=== PATIENT | female | born 1995 | race Caucasian/White ===

== ENCOUNTER 2019-05-31 13:43 | Emergency (ER) | payer OTHER, SELFPAY ==
[2019-05-31 13:44] VITALS: BP 156/100; PULSE 96; RESP 17; TEMP 36.2; O2SAT 97; BMI 39.9
--- NOTE | 2019-05-31 15:03 | EKG12_ITS ---
Test Reason : HEADACHE Blood Pressure : / mmHG Vent. Rate : 078 BPM Atrial Rate : 078 BPM P-R Int : 158 ms QRS Dur : 084 ms QT Int : 380 ms P-R-T Axes : 030 015 032 degrees QTc Int : 433 ms Normal sinus rhythm with sinus arrhythmia Normal ECG Confirmed by SHANITA CORDOVA, [place] ([id number]), newspaper editor CARYN REYES ([id number]) on 06/02/2019 10:47:39 AM Referred By: VERN Confirmed By:HOUSTON DIEHL MD
--- NOTE | 2019-05-31 15:03 | CT_ITS ---
STUDY: CT BRAIN WITHOUT CONTRAST REASON FOR EXAM: Female, 23 years old. Headache. Dizziness. RADIATION DOSAGE (If Supplied By Facility): CTDIvol = ( 44.99 ) mGy, DLP = ( 829.85 ) mGycm TECHNIQUE: Transaxial CT imaging of the brain was performed without administration of intravenous contrast material. Individualized dose optimization techniques were used for this CT. COMPARISON: No relevant priors. FINDINGS: Normal soft tissue structures. Normal calvarium. Normal size ventricles and extra-axial spaces for the patient's age. Normal white matter tracts of the cerebral hemispheres. Normal basal ganglia and thalami. Normal brainstem. Normal cerebellum. There is no intracranial hemorrhage. There are no findings of an acute ischemic infarction. Normal visualized paranasal sinuses. CT/Brain/Head without Contrast IMPRESSION: Normal unenhanced CT scan of the brain. Electronically Signed: Farhan Dyson MD at 16:44 EDT , Service support ,
--- NOTE | 2019-05-31 15:09 | NURSING ---
NO OLD EKGS
[2019-05-31] MEDS: Ketorolac 30 MG/ML Syringe IV (15:25)
[2019-05-31] MEDS: 0.9% Normal Saline 1,000 ML 1000 ML IV (15:25)
[2019-05-31 15:26] LABS: Mucous, Urine 0 SEEN /hpf (<or=2+); Red Blood Cells-Urine 0 SEEN /hpf (0-5)
[2019-05-31 15:33] LABS: Absolute Lymphocyte Count 3.03 X10^3/uL (0.83-4.51); Absolute Neutrophil Count 6.7 X10^3/uL (2.0-7.7); Basophil# 0.06 X10^3/uL; Basophil% 0.6 % (0-1); Eosinophil# 0.14 X10^3/uL; Eosinophils% 1.3 % (0-5); Hemoglobin 14.4 g/dL (12.0-15.0); Lymphocyte # 3.03 X10^3/ul (4.0); Lymphocyte % 28.2 % (19-41); Mean Corp Hgb Conc 33.5 g/dL (32-36); Mean Corpuscular Hgb 29.6 pg (27.0-32.0); Mean Corpuscular Volume 88.3 fL (81-99); Mean Platelet Vol. 8.5 fl (6.2-12.0); Monocyte# 0.75 X10^3/uL; NRBC Flagged by Analyzer 0 % (0-5); Neutrophil % 62.4 % (47-70); Platelet Count 327 K/mm3 (150-450); RBC Distribution Width CV 12.1 % (11.6-14.6); RBC Distribution Width SD 38.9 fl (35.1-43.9); Red Blood Count 4.87 M/mm3 (4.2-5.4); White Blood Count 10.7 K/mm3 (4.4-11.0)
[2019-05-31 15:35] LABS: Color, Urine Yellow (Yellow); Glucose, Dipstick Normal (Normal); Ketone-Dipstick Negative (Negative); Leukocyte Esterase-Dipstick 100 /ul (Negative); Nitrite-Dipstick Negative (Negative); Occult Blood-Urine Negative /ul (Negative); Protein-Dipstick Negative (Negative); Urine Bilirubin Dipstick Negative (Negative); Urine Clarity Clear (Clear); Urine Urobilinogen Normal (Normal)
[2019-05-31 15:38] LABS: Internal QC Validated? YES +Cl - CLEAR BKGD; Pregnancy, Urine Negative Negative
[2019-05-31 15:46] LABS: Bacteria RARE /hpf (None Seen); Squamous Epithelial Cells - UA 0-5 SEEN /hpf (5-10); White Blood Cells 0-5 SEEN /hpf (0-5)
[2019-05-31 16:06] LABS: ALB/GLOB Ratio 0.9 RATIO (0.9-2.4); AST(SGOT) 25 U/L (15-37); Alanine Aminotransfer ALT/SGPT 47 U/L (13-56); Albumin, Serum 3.7 g/dL (3.2-5.0); Alkaline Phosphatase 89 U/L (45-117); Anion Gap 8 (5-15); BUN 12 mg/dL (7-18); BUN/Creat Ratio 16.6 RATIO (10-20); Calcium,Total 8.9 mg/dL (8.5-10.1); Chloride 107 mmol/L (98-107); Creatinine, Serum 0.72 mg/dL (0.55-1.02); EST Glomerular Filtration Rate 107 mL/min (>60); Est Glom Filt Rate - Afr Amer 129 mL/min (>60); Estimated Creatinine Clearance 110.28 ml/min; Globulin 4.1 g/dL (2.2-4.2); Glucose 105 mg/dL (74-106); Potassium 3.9 mmol/L (3.5-5.1); Protein, Total 7.8 g/dL (6.4-8.2); Sodium Level 141 mmol/L (136-145); Thyroid Stim Hormone (TSH) 1.56 uIU/mL (0.358-3.74)
[2019-05-31 16:08] VITALS: RESP 18
--- NOTE | 2019-05-31 16:51 | ED.DCSUM_ITS ---
- ER Visit Summary Date of Service: 05/31/19 Chief Complaint: Headache History of Present Illness: The patient is a 23 F who states that yesterday she began to not feel very well. She stated that she was little bit nauseous and did not really feel much like eating. She states when she got to work today she felt shaky little bit a week and some dizziness. She had a nosebleed on the right. She took some Tylenol around 10:00 which seemed to help the headache. She checked her blood pressure which was elevated and not normal for her. States that she still feels a little bit shaky. She denies any fevers. Last menstrual. Was last week. No rashes. No neck pain. No visual symptoms. No neurologic deficits. States she is otherwise a very healthy individual. Physical Examination: Afebrile vital signs are stable pressure was noted to be 156/100 in triage. Gen: Well-nourished well-developed and in the bed no acute distress. She smiles interacts appropriately Head: Normocephalic atraumatic Eyes: Perrl EOMI ENT: TMs clear no rhinorrhea moist mucous membranes Neck: Supple no lymphadenopathy no JVD nontender no meningitic symptoms CVS: Regular rate rhythm no murmurs normal S1-S2 Respiratory: No distress clear to auscultation bilaterally chest nontender Abdomen: Soft nontender nondistended normal bowel sounds no masses Back: Nontender Extremity: Nontender no edema Skin: Normal color no rash Neuro: alert orientated ?3 CN II-XII intact normal strength sensation Psych: Normal affect normal mood Test Results: CBC BMP were normal. TSH urine urine test were normal. CT the brain was negative. EKG demonstrated a sinus rhythm at a rate of 78 with no concerning features of [facility] Emergency Department Course and Treatment: She received IV fluids and a dose of Toradol. Cannot say I find anything focal on exam or laboratory evaluation. I recommend continued supportive care. I will write for some nausea medication at home. For her blood pressure I recommend that she continue to monitor it and take a set of data points to her doctor for evaluation if they remain high. She is to return if worsening or new symptoms. Impression: 1. Headache 2. Nausea 3. Hypertension This note was generated with [employer] dictation software. It may contain incorrect words, spelling, and punctuation that were not noted in review of the chart prior to signing ED Disposition - Plan for ED Patient: Disposition: Home or Assisted Living Instructions: Nosebleed, HEADACHE, Unspecified Prescriptions: Ondansetron [Zofran Odt] 4 mg PO Q6H PRN PRN #10 tab PRN Reason: Nausea Prescription Printed Referrals: Amanda Machado, [employer] OFFICER-C [Primary Care Provider] - 3-5 Days if not improving
== END 2019-05-31 17:21 | disposition home or self-care (01) ==
PROVIDERS: Emergency Provider Emergency Medicine; Family Provider Nurse Practitioner Family; PCP Nurse Practitioner Family
DX: R51 Headache (principal); R11.0 Nausea; I10 Essential (primary) hypertension
CPT/HCPCS: 70450; 80053; 81001; 81025; 84443; 85025; 93005; 96361; 96374; 99284; J7030; A4216

== ENCOUNTER 2019-10-21 13:21 | Emergency (ER) | payer OTHER, SELFPAY ==
[2019-07-26 13:30] VITALS: BMI 39.9
[2019-10-21 13:23] VITALS: BP 139/71; PULSE 90; RESP 17; TEMP 36.9; O2SAT 98; BMI 43.2
--- NOTE | 2019-10-21 14:00 | CT_ITS ---
STUDY: CT ABDOMEN AND PELVIS WITH CONTRAST REASON FOR EXAM: Female, 24 years old. RIGHT FLANK PAIN/UTI RADIATION DOSAGE (If Supplied By Facility): CTDIvol = ( 15.41 ) mGy, DLP = ( 1187.22 ) mGycm TECHNIQUE: Transaxial images were obtained from the dome of the diaphragm to the symphysis pubis without oral contrast. IV 100mL Isovue-300 was administered. Sagittal and coronal images were reconstructed. Individualized dose optimization techniques were used for this CT. COMPARISON: None. FINDINGS: The visualized lung bases are unremarkable. The visualized portions of the heart are within normal limits. Normal liver. Normal gallbladder and extrahepatic biliary system. Normal spleen. Normal pancreas. Normal bilateral adrenal glands. Normal right kidney. Normal left kidney. Normal visualized stomach. Normal small intestine. There are scattered colonic diverticula consistent with diverticulosis. The appendix is visualized and appears normal. Normal abdominal aorta. Normal inferior vena cava. Normal retroperitoneum. Normal urinary bladder. Small follicles are seen in the right ovary. Small benign-appearing bilateral inguinal lymph. Straightening of the normal lumbar lordosis. CT/Abdomen/Pelvis W IV Cont ONLY IMPRESSION: Scattered sigmoid diverticula. Electronically Signed: Diogo Calloway, at 15:30 EST , Service support ,
--- NOTE | 2019-10-21 14:01 | ED.VIS.GEN ---
History of Present Illness Chief Complaint: Flank Pain Informant: Patient Narrative: She went to her doctor last day was diagnosed with UTI and placed on 3 days of Bactrim. She states that she has continued to have an uneasy feeling in her abdomen and now has pain in the bilateral low back. She states that is worse with movement laying back against the bed and walking heavily. No fevers. She notes nausea but no vomiting. No bowel changes. She denies any urinary frequency dysuria or hematuria. She also notes some right upper quadrant abdominal discomfort. Patient denies any vaginal discharge. Past Medical History - Allergies and Home Meds Allergies/Adverse Reactions: Allergies No Known Allergies Allergy (Verified 10/21/19 13:21) Primary Care Physician: Amanda Machado NP-C [Primary Care Provider] - Smoking Status: Never smoker Review of Systems General: Denies: Chills, Fever, Sweats Eyes: Denies: Visual changes - bilaterally, Diplopia ENT: Denies: Rhinorrhea, Sore throat Cardiovascular: Denies: Chest pain, Palpitations Respiratory: Denies: Dyspnea, Cough, Dyspnea on exertion Gastrointestinal: Reports: Abdominal pain, Nausea. Denies: Vomiting, Diarrhea, Melena, Hematochezia Genitourinary: Denies: Dysuria, Hematuria, Frequency Musculoskeletal: Reports: Back pain. Denies: Extremity Pain Skin: Denies: Rash, Wounds Neurological: Denies: Headache, Weakness, Numbness Physical Exam Vital Signs/Narrative: Vital Signs Temp Pulse Resp BP Pulse Ox 10/21/19 13:23 98.4 F 90 17 139/71 H 98 Inital Vital Signs reviewed: Yes General: Well nourished, Well developed, Obese, No Acute Distress Head: Normocephalic, Atraumatic Eyes: Perrl, EOMI ENT: Moist mucous membranes, No rhinorrhea Neck: Supple, Nontender Cardiovascular: Regular rate, Regular rhythm, No murmurs Respiratory: No distress, CTA bilaterally, Chest nontender Abdomen: Soft, Nondistended, Normal bowel sounds, Tender. Negative for: Guarding - Right upper quadrant tenderness to palpation, Rebound tenderness Back: - - Right and left lumbar paraspinal tenderness to palpation Extremities: Nontender, No edema Skin: Normal color, No rash Neurological: Alert, Oriented x3, Cranial nerves II-XII grossly intact, Normal Strength, Normal Sensation Psychological: Normal affect, Normal Mood Diagnostic/Tx/Re-eval - Medical Decision Making Basic labs are negative. Urinalysis demonstrated 50-100 white cells with 2+ bacteria. 0-5 trichomonas. Discussed the case with the patient and her findings. Restart her on Keflex and I will write for 2 g of metronidazole. We will do a urine culture. I will write for a small amount of pain medication. She is to follow-up with her doctor return if worsening or concerns. ED Disposition - Plan for ED Patient: Disposition: Home or Assisted Living Diagnosis: Pyelonephritis, Trichomoniasis Instructions: PYELONEPHRITIS, Female (Adult) Prescriptions: Cephalexin [Keflex] 500 mg PO Q6 #24 cap Transmission Status: Pending to [id number] Metronidazole 2,000 mg PO X1 #4 tab [facility]: [facility] Hydrocodone Bitart/Apap 5-325 [[place] 5MG-325MG] 1 tablet PO Q6H PRN PRN 3 Days #10 tablet PRN Reason: Pain Transmission Status[facility] Ondansetron [Zofran Odt] 4 mg PO Q8H PRN PRN #10 tab PRN Reason: Nausea Transmission Status[id number] Referrals: Amanda Machado, SOFTWARE LICENSING SPECIALIST-C [Primary Care Provider] - 3-5 Days if not improving
[2019-10-21 14:21] LABS: Color, Urine Yellow (Yellow); Glucose, Dipstick Normal (Normal); Ketone-Dipstick 15 mg/dl (Negative); Leukocyte Esterase-Dipstick 500 /ul (Negative); Nitrite-Dipstick Negative (Negative); Occult Blood-Urine 10 /ul (Negative); Protein-Dipstick Negative (Negative); Urine Bilirubin Dipstick Negative (Negative); Urine Clarity Sl. Cloudy (Clear); Urine Urobilinogen Normal (Normal)
[2019-10-21 14:22] LABS: Internal QC Validated? YES +Cl - CLEAR BKGD; Pregnancy, Urine Negative Negative
[2019-10-21 14:25] LABS: Absolute Lymphocyte Count 2.87 X10^3/uL (0.83-4.51); Absolute Neutrophil Count 5.4 X10^3/uL (2.0-7.7); Basophil# 0.05 X10^3/uL; Basophil% 0.5 % (0-1); Eosinophil# 0.17 X10^3/uL; Eosinophils% 1.9 % (0-5); Hematocrit 40.5 % (37-47); Hemoglobin 13.1 g/dL (12.0-15.0); Lymphocyte # 2.87 X10^3/ul (4.0); Lymphocyte % 31.4 % (19-41); Mean Corp Hgb Conc 32.3 g/dL (32-36); Mean Corpuscular Volume 89.6 fL (81-99); Mean Platelet Vol. 8.7 fl (6.2-12.0); Monocyte# 0.65 X10^3/uL; Monocyte% 7.1 % (0-10); NRBC Flagged by Analyzer 0 % (0-5); Neutrophil # 5.38 X10^3/uL (2.7-7.7); Neutrophil % 58.8 % (47-70); Platelet Count 291 K/mm3 (150-450); RBC Distribution Width CV 12.6 % (11.6-14.6); RBC Distribution Width SD 41.2 fl (35.1-43.9); Red Blood Count 4.52 M/mm3 (4.2-5.4); White Blood Count 9.2 K/mm3 (4.4-11.0)
[2019-10-21 14:34] LABS: AST(SGOT) 16 U/L (15-37); Alanine Aminotransfer ALT/SGPT 37 U/L (13-56); Albumin, Serum 3.6 g/dL (3.2-5.0); Alkaline Phosphatase 73 U/L (45-117); Anion Gap 6 (5-15); BUN 11 mg/dL (7-18); BUN/Creat Ratio 15.9 RATIO (10-20); Calcium,Total 9.1 mg/dL (8.5-10.1); Chloride 111 mmol/L (98-107); Creatinine, Serum 0.69 mg/dL (0.55-1.02); EST Glomerular Filtration Rate 112 mL/min (>60); Est Glom Filt Rate - Afr Amer 135 mL/min (>60); Estimated Creatinine Clearance 118.71 ml/min; Globulin 3.6 g/dL (2.2-4.2); Glucose 90 mg/dL (74-106); Lipase 194 U/L (73-393); Potassium 3.9 mmol/L (3.5-5.1); Protein, Total 7.2 g/dL (6.4-8.2); Sodium Level 141 mmol/L (136-145)
[2019-10-21 14:36] LABS: White Blood Cells 50-100 SEEN /hpf (0-5)
[2019-10-21 14:38] LABS: Bacteria 2+ /hpf (None Seen); Mucous, Urine 1+ /hpf (<or=2+); Red Blood Cells-Urine 0-5 SEEN /hpf (0-5); Squamous Epithelial Cells - UA 0-5 SEEN /hpf (5-10); Trichomonas 0-5 SEEN /hpf (None Seen)
[2019-10-21 16:05] VITALS: BP 134/89; PULSE 89; RESP 16; O2SAT 100
== END 2019-10-21 16:06 | disposition home or self-care (01) ==
PROVIDERS: Emergency Provider Emergency Medicine; PCP Nurse Practitioner Family
DX: N12 Tubulo-interstitial nephritis, not specified as acute or chronic (principal); A59.9 Trichomoniasis, unspecified; E66.9 Obesity, unspecified
CPT/HCPCS: 74177; 80053; 81001; 81025; 83690; 85025; 87086; 99283; Q9967; A4216

== ENCOUNTER → 2020-08-18 06:34 | Outpatient (CLI) | payer OTHER, SELFPAY ==
[2020-08-10 11:40] VITALS: BMI 42.6
--- NOTE | 2020-08-18 08:02 | TELEMED_ITS ---
[facility] has confirmed receipt of a request for visit. This document confirms receipt of the order initiating the consult. To find the results of the consultation, please view the patient's reports for the scanned Telemed Consult.
== END ==
PROVIDERS: PCP Nurse Practitioner Family; Referring Provider Psychiatry & Neurology Neurology; Visit Provider Psychiatry & Neurology Neurology
DX: G40.909 Epilepsy, unspecified, not intractable, without status epilepticus (principal)
CPT/HCPCS: 95819

== ENCOUNTER → 2020-08-22 17:39 | Outpatient (CLI) | payer OTHER, SELFPAY ==
[2020-08-10 11:40] VITALS: BMI 42.6
--- NOTE | 2020-08-22 17:41 | MRI_ITS ---
STUDY: MRI BRAIN WITH AND WITHOUT CONTRAST REASON FOR EXAM: Female, 24 years old. Seizure disorder manageable w/o meds until about 3 weeks ago TECHNIQUE: Standardized multiplanar fat and water weighted pulse sequences were obtained. IV Yes YES was administered for the contrast portion of the examination. COMPARISON: CT of the brain 05/31/2019 FINDINGS: Normal size of the ventricles and extra-axial spaces for the patient''s age. Normal white matter tracts of the supratentorial brain. Normal bilateral basal ganglia. Normal thalami. There is no extra-axial fluid accumulation. Normal flow voids within the major intracranial circulation suggesting patency by spin echo criteria. Normal venous enhancement. There is no enhancing intra-axial or extra-axial abnormality. Normal sella turcica, pituitary gland, infundibular stalk, optic chiasm and hypothalamus. Normal tectal plate and pineal gland. Normal midbrain, arjun and medulla. Normal cerebellum. Normal basal cisterns. Normal bilateral temporal bones. Normal bilateral internal auditory canals. No demonstrated orbital abnormality, within the constraints of a routine brain study. Normal visualized paranasal sinuses. Normal calvarium and skull base. Normal visualized soft tissue structures. Normal visualized upper cervical spine. There is suggestion of very subtle reduction in size of the right hippocampus when compared with the left of uncertain significance. If clinically warranted PET scan may be helpful for further assessment of seizure etiology. MRI/Brain W/WO Contrast IMPRESSION: Subtle asymmetric reduction in size of the right hippocampus when compared with the left of uncertain etiology or significance. PET scan may be helpful to exclude seizures related to hippocampus if clinically warranted Otherwise normal enhanced and nonenhanced MRI of the brain Electronically Signed: Lee Dugan MD at 19:51 EST , Service support ,
== END ==
PROVIDERS: PCP Nurse Practitioner Family; Referring Provider Psychiatry & Neurology Neurology; Visit Provider Psychiatry & Neurology Neurology
DX: G40.909 Epilepsy, unspecified, not intractable, without status epilepticus (principal)
CPT/HCPCS: 70553; A9575

== ENCOUNTER 2020-10-02 14:09 | Emergency (ER) | payer OTHER, SELFPAY ==
[2020-10-02 14:12] VITALS: BP 150/82; PULSE 90; RESP 16; TEMP 35.8; O2SAT 99; BMI 27.1
[2020-10-02 15:14] LABS: White Blood Cells 0 SEEN /hpf (0-5)
[2020-10-02 15:21] LABS: Color, Urine Amber (Yellow); Glucose, Dipstick Normal (Normal); Leukocyte Esterase-Dipstick 25 /ul (Negative); Nitrite-Dipstick Positive (Negative); Occult Blood-Urine 150 /ul (Negative); Protein-Dipstick 30 mg/dl (Negative); Specific Gravity, Urine 1.025 (1.002-1.030); Urine Clarity Sl. Cloudy (Clear); Urine Urobilinogen 4 mg/dl (Normal)
[2020-10-02 15:28] LABS: Urine Bilirubin Dipstick 1 mg/dL (Negative)
[2020-10-02 15:29] LABS: Ketone-Dipstick 150 mg/dl (Negative)
[2020-10-02 15:34] LABS: Absolute Neutrophil Count 3.7 X10^3/uL (2.0-7.7); Basophil# 0.05 X10^3/uL; Basophil% 0.8 % (0-1); Eosinophils% 1.5 % (0-5); Hematocrit 40.3 % (37-47); Hemoglobin 13.4 g/dL (12.0-15.0); Lymphocyte % 33.5 % (19-41); Mean Corp Hgb Conc 33.3 g/dL (32-36); Mean Corpuscular Hgb 29.5 pg (27.0-32.0); Mean Corpuscular Volume 88.8 fL (81-99); Mean Platelet Vol. 8.5 fl (6.2-12.0); Monocyte# 0.47 X10^3/uL; Monocyte% 7.2 % (0-10); NRBC Flagged by Analyzer 0 % (0-5); Neutrophil # 3.73 X10^3/uL (2.7-7.7); Neutrophil % 56.7 % (47-70); Platelet Count 347 K/mm3 (150-450); RBC Distribution Width CV 12.7 % (11.6-14.6); RBC Distribution Width SD 41.6 fl (35.1-43.9); Red Blood Count 4.54 M/mm3 (4.2-5.4); White Blood Count 6.6 K/mm3 (4.4-11.0)
--- NOTE | 2020-10-02 15:56 | ED.VIS.GEN ---
History of Present Illness Chief Complaint: Mental Health Detail of Chief Complaint: I had an event Informant: Patient Onset: Days - Event occurred on Context: Sudden Onset Timing: Intermittent Quality: Patient states she was hallucinating, read HPI Location: Residents watching TV with roommate Current Severity: - - No symptoms Maximum Severity: Severe Worsened by: Unknown Relieved by: Unknown Associated Symptoms: Unknown Narrative: She is a 25-year-old woman who has history of depression anxiety who presents because of event. She states she has no recall. She apparently was out of it. When asked what she meant by hallucination she denied auditory or visual loose [place]. She states she was not with it. She had an out of body experience. She then began to yell and was aggressive. She states she has no recall. She denies drug or alcohol use. She states she has smoked marijuana in the past. She not smoke marijuana in months. She states her roommate is genotypically a male and phenotypic a . She denies headache, visual, ocular auditory symptoms. She denies any infectious symptoms. She denies rhinorrhea, congestion postnasal drainage. She denies sore throat. She denies decreased hearing, ringing in ears or drainage from her ears. She denies neck pain or neck stiffness. She denies cough or shortness of breath. Denies chest pain. She denies nausea, vomiting diarrhea. She denies rash or skin lesions. She denies paresthesia, anesthesia or motor weakness. - Past Medical History (1) History of depression Status: Acute Past Medical History - Allergies and Home Meds Allergies/Adverse Reactions: Allergies No Known Allergies Allergy (Verified 10/02/20 14:47) Primary Care Physician: Amanda Machado NP, SU[employer]ATION-C [Primary Care Provider] - Prior records reviewed: Yes Surgical History: noncontributory Lives: Roommate Smoking Status: Current every day smoker Alcohol: None Drugs: Marijuana Review of Systems General: Denies: Chills, Fever, Sweats Eyes: Denies: Visual changes - bilaterally, Diplopia ENT: Denies: Bilateral ear pain, Rhinorrhea, Sore throat Cardiovascular: Denies: Chest pain, Palpitations Respiratory: Denies: Dyspnea, Cough, Dyspnea on exertion Gastrointestinal: Denies: Abdominal pain, Nausea, Vomiting, Diarrhea, Melena, Hematochezia Genitourinary: Denies: Dysuria, Hematuria, Frequency Musculoskeletal: Denies: Myalgias, Arthralgias, Neck pain, Back pain, Extremity Pain Skin: Denies: Rash, Wounds Neurological: Denies: Headache, Weakness, Numbness Psych: Reports: Depression, Anxiety. Denies: Suicidal thoughts, Suicidal ideations Endocrine: Denies: Polyuria, Polydipsia Hematologic: Denies: Easy bruising, Easy bleeding Physical Exam Vital Signs/Narrative: Vital Signs Temp Pulse Resp BP Pulse Ox 10/02/20 14:12 96.5 F L 90 16 150/82 H 99 Inital Vital Signs reviewed: Yes General: Well nourished, Well developed, No Acute Distress Head: Normocephalic, Atraumatic Eyes: Perrl, EOMI ENT: Moist mucous membranes, No rhinorrhea Neck: Supple, Nontender, No lymphadenopathy, No JVD Cardiovascular: Regular rate, Regular rhythm, No murmurs, Normal S1, Normal S2 Respiratory: No distress, CTA bilaterally, Chest nontender Abdomen: Soft, Nontender, Nondistended, Normal bowel sounds Back: Nontender, Normal Inspection Extremities: Nontender, No edema Skin: Normal color, No rash Neurological: Alert, Oriented x3, Cranial nerves II-XII grossly intact, Normal Strength, Normal Sensation Psychological: Depressed Diagnostic/Tx/Re-eval Laboratory Results 10/02/20 10/02/20 10/02/20 15:03 15:18 15:18 WBC 6.6 RBC 4.54 Hgb 13.4 Hct 40.3 MCV 88.8 MCH 29.5 MCHC 33.3 RDW Std Deviation 41.6 RDW Coeff of Mckayla 12.7 Plt Count 347 MPV 8.5 Immature Gran % (Auto) 0.300 Neut % (Auto) 56.7 Lymph % (Auto) 33.5 [place] % (Auto) 7.2 Eos % (Auto) 1.5 Baso % (Auto) 0.8 Absolute Neuts (auto) 3.7 Absolute Lymphs (auto) 2.20 Nucleated RBC % 0 Sodium 142 Potassium 3.6 Chloride 113 H Carbon Dioxide 20.0 L Anion Gap 9 BUN 7 Creatinine 0.78 Estim Creat Clear Calc 152.57 Est GFR (MDRD) Af Amer 116 Est GFR (MDRD) Non-Af 96 BUN/Creatinine Ratio 8.9 L Glucose 88 Calcium 9.0 Urine Color Ruth Urine Clarity Sl. Cloudy Urine pH 5.0 Ur Specific [place] 1.025 Urine Protein 30 H Urine Glucose (UA) Normal Urine Ketones 150 H Urine Occult Blood 150 H Urine Nitrite Positive H Urine Bilirubin 1 H Urine Urobilinogen 4 H Ur Leukocyte Esterase 25 H Urine RBC 0-5 SEEN Urine WBC 0 SEEN Ur Squamous Epith Cells 5-10 SEEN Urine Bacteria RARE Urine Mucus 2+ UA is not indicative of an infection. Basic metabolic panel is unremarkable. CBC is unremarkable. - Medical Decision Making Suspect patient has global amnesia with possible undifferentiated psychosis. Will obtain blood work to assess metabolic and infectious etiology. If work-up is negative will discharge home with appropriate home-going instructions for global amnesia. Nurse informed me that patient told her when her roommate yelled at her she snapped out of it and everything went back to normal. This is different than what she told me. This raises concern for attention seeking behavior. Since her work-up is negative will discharge to home to follow-up with her therapist. She is scheduled to see her therapist next week. ED Disposition - Plan for ED Patient: Disposition: Home or Assisted Living Diagnosis: Amnesia, global, transient, Abnormal behavior Referrals: Amanda Machado NP, SUPER[employer]PERATION-C [Primary Care Provider] - As Needed Additional Instructions: Keep your appointment with therapist.
[2020-10-02 15:59] LABS: Anion Gap 9 (5-15); BUN 7 mg/dL (7-18); BUN/Creat Ratio 8.9 RATIO (10-20); Chloride 113 mmol/L (98-107); Creatinine, Serum 0.78 mg/dL (0.55-1.02); EST Glomerular Filtration Rate 96 mL/min (>60); Est Glom Filt Rate - Afr Amer 116 mL/min (>60); Estimated Creatinine Clearance 152.57 ml/min; Glucose 88 mg/dL (74-106); Potassium 3.6 mmol/L (3.5-5.1); Sodium Level 142 mmol/L (136-145)
[2020-10-02 16:00] LABS: Bacteria RARE /hpf (None Seen); Mucous, Urine 2+ /hpf (<or=2+); Squamous Epithelial Cells - UA 5-10 SEEN /hpf (5-10)
[2020-10-02 16:01] LABS: Red Blood Cells-Urine 0-5 SEEN /hpf (0-5)
--- NOTE | 2020-10-02 16:13 | ED.DCSUM_ITS ---
- ER Visit Summary Date of Service: 10/02/20 Chief Complaint: [] History of Present Illness: The patient is a 25 F [] Physical Examination: [] Test Results: [] Emergency Department Course and Treatment: [] Treatment Plan: [] Disposition: [] Impression: [] This note was generated with [employer] Power Technologiesation software. It may contain incorrect words, spelling, and punctuation that were not noted in review of the chart prior to signing ED Disposition - Plan for ED Patient: Disposition: Home or Assisted Living Diagnosis: Amnesia, global, transient, Abnormal behavior Instructions: ED ALOC Referrals: Amanda Machado NP, FELT HOOKER-C [Primary Care Provider] - As Needed Additional Instructions: Keep your appointment with therapist.
== END 2020-10-02 16:19 | disposition home or self-care (01) ==
PROVIDERS: Emergency Provider Emergency Medicine; PCP Nurse Practitioner Family
DX: R41.3 Other amnesia (principal); R46.89 Other symptoms and signs involving appearance and behavior
CPT/HCPCS: 36415; 80048; 81001; 85025; 99282

== ENCOUNTER → 2023-08-26 | Outpatient (CLI) | payer OTHER, SELFPAY ==
--- NOTE | 2023-08-26 08:34 | NEURO ---
NCS and/or EMG Patient Report Ordering Doctor: Carmelo Montague DATE OF SERVICE: 08/26/23 Clinical Summary: 27 year old female presenting with symptoms of numbness and tingling diffusely in the bilateral upper extremities from the neck to the hands. This EMG/NCS was performed to evaluate for right/left cervical radiculopathy. Nerve Conduction Studies Summary: There was left ulnar motor conduction velocity slowing across the elbow. Otherwise, nerve conduction studies were normal in the bilateral upper extremities. Needle Examination Summary: Needle examination of select muscles of the bilateral upper extremities was normal. Impression: There is electrodiagnostic evidence of the following - 1) Mild, left ulnar mononeuropathy at the elbow, with demyelinating features There was no electrodiagnostic evidence of a right/left cervical radiculopathy. Multi Select Codes Neurology Neurology Interp Codes: 63045-44 Musc test done w/n test comp (interp) (2) and 51773-45 Nrv cndj test 13/> studies (interp)
== END | disposition home or self-care (01) ==
LOC: PSN 06:56
PROVIDERS: PCP Nurse Practitioner Family; Referring Provider Psychiatry & Neurology Neurology; Visit Provider Psychiatry & Neurology Neurology
DX: M54.2 Cervicalgia (principal)
CPT/HCPCS: 95886; 95913

== ENCOUNTER 2024-03-29 08:00 | Outpatient (RCR) | payer OTHER, SELFPAY ==
--- NOTE | 2024-03-29 09:05 | BH.SGPN.GN ---
Behaviors/Verbalizations/Mental Status: [] Eye contact is good. Motor activity is appropriate. Appearance is casual. Speech is Appropriate. Mood is depressed and anxious. Affect is congruent. Thoughts are linear and logical. No evidence of psychosis. Reviewed daily check in sheet and no reports of suicidal ideations or intent. Client Response/Progress/Benefit: [] Pt participated when prompted. Attentive. Today was pt's first day in [facility]. Briefly introduced herself to the group. According to pt she has had two recent psychiatric admissions. hospitalizations. The most recent was a very bad experience. States that she was apprehensive about attending today due to poor inpatient psych experience. Did not elaborate on the reasons for her admissions. Admits to be very anxious and not myself. No progress noted as this was her first day in [facility]. Benefited from group support, encouragement, and feedback/advice for her first day in [facility]. Will continue in [facility] to maintain safety, prevent decompensation/re-admission, and increase healthy coping. Narrative Note: []
--- NOTE | 2024-03-29 10:15 | BH.SGPN.GN ---
Behaviors/Verbalizations/Mental Status: []Pt alert and oriented, neatly dressed and groomed. Eye contact good. Motor activity appropriate. Speech within normal limits. Affect congruent, mood depressed. Thoughts linear, logical, no signs of hallucinations or delusions. Client Response/Progress/Benefit: [] Pt was attentive during psychoeducation and participated in group activity. Group discussed what contributes to a person?s perspective and how perspective can positively or negatively impact mental health treatment. Pt reflected on their perspective today and how it is impacting them. Pt shared their perspective today is more ?negative and pessimistic? as pt is fatigued, wants to escape, and pt feels highly anxious. Pt however, does have some hope that things could get better and a good support system. ?Pt appeared to benefit from increasing awareness of different perspectives and how they can affect mental health. Pt will continue [facility] tx to prevent rehospitalization, improve daily functioning, and gain healthy coping skills. ??? Narrative Note: []
--- NOTE | 2024-03-29 11:15 | BH.SGPN.GN ---
Behaviors/Verbalizations/Mental Status: []Pt alert and oriented, casually dressed and groomed. Eye contact good. Motor activity appropriate. Speech within normal limits. Affect congruent, mood anxious and depressed. Thoughts linear, logical, no signs of hallucinations or delusions. Client Response/Progress/Benefit: []Pt was attentive and contributed to group discussion. Pt worked with group to identify strategies that can help with challenging negative perspective. Pt completed strengths exploration worksheet, identifying love of learning, open-mindedness, and spirituality as personal strengths. Pt able to acknowledge how these strengths are helping pt and can continue to help pt in mental health journey. Pt identified wanting to work on leaning on strength of open-mindedness to begin practicing challenging negative thoughts to improve self-talk. Benefited from identifying personal strengths and strategies for enhancing use of identified strengths. Pt will continue [facility] tx to increase coping skill repertoire, improve mood stability, and prevent decompensation. Narrative Note: []
--- NOTE | 2024-03-29 14:06 | BH.MDN ---
Multi-Disciplinary Note Note 60-min Individual: Time Started:: 12:15 Date: 03/29/24 Purpose of session/treatment goals addressed:: To gather information on pt's current stressors, symptoms, triggers, history, and tx goals. Another goal was to build rapport and provide emotional support. Eye Contact:: Fair Motor Activity:: Appropriate Appearance:: Neat Speech:: Appropriate Mood:: Anxious and Depressed Affect:: Constricted Thoughts:: Linear, Logical and No evidence of hallucinations/delusions noted Staff Interventions:: thought challenging, CBT techniques, rapport building, strengths perspective, treatment planning, completed risk assessment / safety planning and goal setting Client Response:: Pt responded well to session, open to meeting with therapist. Pt shared they have been in counseling before, but they feel they never got into issues as they mostly used sessions for crises. Pt has had two hospitalizations since February 24 for suicide attempt by excessively drinking on her medications. Pt stated the smallest things set me off and their most recent attempt was triggered by feeling left out by friends. Pt shared they have numerous stressors going on right now that also contributed to pt's hospitalization. These include pt's inability to work due to their physical health issues, financial stress, relationship stress, and loss of purpose without a career. Pt shared most days they feel like glorified house dog and shared their worth is dependent on their ability to provide, so pt feels worthless. Pt does have good support at home including their of two years and their girlfriend of seven years. Pt identifies as non-binary and polyamorous. Pt shared their partners are supportive, but pt shared their relationships have been testing numerous times due to pt's mental health. Pt reports belief they have BPD and pt stated the favorite person thing is real for me, I really struggle with relationships. Pt stated they want to work on their all or nothing thinking, impulsivity, negative self-talk, and emotion regulation. Pt identified depression and anxiety as their biggest issues. Pt also has chronic health issues that impact her daily functioning and exacerbate mental health symptoms. Pt stated they have been using deep breathing which helps and pt is hoping the structure of PHP will help pt get back into a routine. Reviewed lethal means counseling and pt shared there is no alcohol in the house and pt's partners check in on pt regularly. Pt also reviewed what they could do to cope including playing video games and reading. Risks/Concerns:: Pt was recently hospitalized for suicide attempt by excessively drinking while taking medications that do not mix with alcohol. Pt reports she has not had active SI since discharging from [facility] (earlier this month), but she does have thoughts of and hopelessness. Pt's has removed all the alcohol from the house and monitors pt. Pt was future oriented in session. No access to weapons and has support at home. Pt has the crisis number and reports ability to maintain safety today. Progress Toward Goals/Plan:: Pt's first day of PHP tx. Pt shared group went well and they benefitted from the topic and peers. Pt reports their symptoms have become so severe, they have not been able to work, their relationships are struggling, and pt is about to file for bankruptcy. Pt was recently hospitalized twice due to suicide attempt by drinking excessively. Pt shared they do not want to go back to the hospital as it was not a good experience and they are ready to do what I need to do to not feel this way. Pt will continue PHP tx to prevent decompensation, prevent rehospitalization, and maintain safety. Time Stopped:: 13:09
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
--- NOTE | 2024-03-29 14:24 | BH.MTP ---
Master Treatment Plan Patient Information Program Physician:: Dr. Shawanda Gee Primary Therapist:: Ila HERNANDEZ Psychiatric Diagnoses Psychiatric Diagnoses:: Major depressive disorder, recurrent, severe without psychosis F 33.2; PTSD; Borderline personality disorder; Nonepileptic seizures, cannot rule out epileptic seizures; History of bulimia with purging by laxative and vomiting Diagnosis Code(s):: F 33.2 Estimated LOS Estimated LOS (in weeks):: 2 Problem/Goal #1 Problem/Goal #1 Stated Goal:: Client will reduce depressive symptoms, worthlessness, negative core beliefs, and suicidal thoughts AEB by self report. Description of Barriers: Pt has had two suicide attempts and two hospitalizations within the past month. Pt reports their SI can be triggered by the smallest things and pt admits to being impulsive. Both pt's attempts involved alcohol. Pt has health issues and financial stress that exacerbate pt's symptoms. Functional Impact: Pt is a 28 non-binary adult who was referred to [facility] tx due to two recent psychiatric admissions for suicide attempt by excessive alcohol consumption. Pt's most recent hospitalization was at [facility] and pt reports they were life flighted and treated medically first. Pt reports stressors of finances, loss of job, chronic health issues, relationship stress, and low distress tolerance as contributors to pt's SI. Pt denies active SI since discharge from inpatient, but pt does admit to chronic SI that is passive. Pt currently endorses a depressed mood with hopelessness, worthlessness, anhedonia, lack of energy, lack of motivation, negative thoughts of self, and rumination. Pt's symptoms have impacted their ability to work, function at home and their relationships. Goal Relevant Strengths/Supports: Two strong supports at home, regret, and motivation to improve. Objectives Objective #1: Stated Objective: Pt will work with therapist to develop a ?crisis plan? which includes emergency telephone numbers, internal/external coping strategies for SI/overwhelming emotions, lists of supports, warning signs, positive aspects of life, and motivations. Interventions: Through individual and group counseling pt will learn and practice various internal and external coping skills for emotional dysregulation. Therapist will provide patient with safety plan worksheet (if pt desires) and work with pt. to develop individualized plan which includes internal coping skills, external coping skills, support, and crisis numbers. Discharge Criteria: Complete safety plan and be able to verbalize plan to therapist (if pt chooses not to complete worksheet). Target Date: 04/12/24 Review Date: 04/12/24 Status: open Objective #2: Stated Objective: Pt will increase ability to manage stressors by gaining 2-3 emotional regulation skills. Interventions: Through group and individual therapy, pt will learn various coping skills to help manage stress and anxiety. Therapist will utilize DBT emotional regulation skills to increase awareness and give pt tools to more effectively manage anxiety. Therapist will provide psychoeducation on emotional regulation and help pt identify unhealthy coping skills she wants to change. Discharge Criteria: Pt will have accomplished this goal when can report improved ability to manage stressors and identify at least 2 emotional regulation skills. Target Date: 04/12/24 Review Date: 04/12/24 Status: open
--- NOTE | 2024-03-30 09:00 | BH.SGPN.GN ---
Behaviors/Verbalizations/Mental Status: [] Eye contact is poor. Motor activity is restless. Appearance is casual. Speech is Appropriate. Mood is anxious. Affect is congruent. Thoughts are linear and logical. No evidence of psychosis. Reviewed daily check in sheet and no reports of suicidal ideations or intent. Client Response/Progress/Benefit: [] Pt was an active participant in group discussions. Attentive. Daily symptom tracker notes 10/13 for anxiety and panic. She discussed breaking down yesterday due to an event, she had been looking forward too, being cancelled. Overwhelming with negative thoughts and cognitive distortions which led to depression and anger. Insight and awareness that this event could have led to a significnat mental health spiral. She was able to utilize reframing and challenging of thoughts which was beneficial. Proud of herself for pulling through. Also shared that started PHP and attending group counseling was a triggering event for her yesterday due to a recent bad experience at psychiatric facility. Two events yesterday which led to negative automatic thoughts and overwhelming emotions. Feeling anxious today. Benefited from group support, encouragement, and feedback. Will continue in PHP to maintain safety, prevent decompensation/re-admission to psych unit, and to increase healthy coping. Narrative Note: []
--- NOTE | 2024-03-30 10:10 | BH.SGPN.GN ---
Behaviors/Verbalizations/Mental Status: [] Eye contact is good. Motor activity is appropriate. Appearance is casual. Speech is Appropriate. Mood is depressed/anxious. Affect is congruent. Thoughts are linear and logical. No evidence of psychosis. Client Response/Progress/Benefit: [] Pt did well to participate in activity and was engaged and attentive during psychoeducation and interactive discussion on coping skills, why people use unhealthy coping skills, how to replace unhealthy coping skills, and internal vs external coping skills. Attentive as peers came up with list of negative coping skills including not asking for help, avoidance, isolating, sleeping, shopping, substance use, and several others. Pt reports often turning to escapism and isolating which helps short-term but results in increased anxiety and depression long-term. Group discussed the effects of how negative coping skills can impact mental health in a negative way. Benefited from increased understanding of unhealthy coping skills and the need for developing healthy internal and external coping skills. Will continue in PHP to prevent decompensation, increase healthy coping skills, and improve functioning. Narrative Note: []
--- NOTE | 2024-03-30 11:10 | BH.SGPN.GN ---
Behaviors/Verbalizations/Mental Status: []Pt alert and oriented, neatly dressed and groomed. Eye contact good. Motor activity appropriate. Speech within normal limits. Affect congruent, mood anxious. Thoughts linear, logical, no signs of hallucinations or delusions. Client Response/Progress/Benefit: [] Pt responded well to session, taking notes and contributing when prompted. Group discussed the different categories of coping skills which included distraction, emotional release, grounding, self-love, and thought challenging. Pt participated in creating a coping skills ?menu? from the five categories of coping skills. Pt's coping skill menu included: cleaning, music, nature, basic needs, and looking at the evidence. Appeared to benefit from increasing repertoire of healthy coping skills. Will continue PHP tx to prevent decompensation, improve use of healthy coping skills, and gain distress tolerance skills. Narrative Note: []
--- NOTE | 2024-03-30 14:57 | BH.MDN ---
Multi-Disciplinary Note Note 60-min Individual: Time Started:: 12:05 Date: 03/30/24 Purpose of session/treatment goals addressed:: To create a safety plan and process current stressors. Eye Contact:: Good Motor Activity:: Appropriate Appearance:: Neat Speech:: Appropriate Mood:: Anxious, Depressed and Other (also joyful at times) Affect:: Congruent Thoughts:: Linear, Logical and No evidence of hallucinations/delusions noted Staff Interventions:: thought challenging, mindfulness skills, rapport building, strengths perspective, completed risk assessment / safety planning (completed pt's safety plan.), taught coping skills and other (discussed ways to improve communication with partners.) Client Response:: Pt responded well to session, open to meeting with therapist. Pt reports feeling better than yesterday. Pt stated their emotions were all out of wack last night after learning that their plans for the weekend got changed. Pt stated in the past they would have just said screw it and not tried to adjust, but last night pt problem-solved. Pt shared they were proud of themselves for doing this and identified it as a mental health win in first group this morning. Pt stated one of their biggest stressors in the relationship dynamic between pt and their currently. Pt identifies as polyamorous and bisexual, so in addition to pt's relationship with their , pt also has a girlfriend who lives with them. Pt stated their is both supportive and not as he can become upset, jealous, and use guilt as manipulation. Pt shared they are unsure what to do, because pt can recognize that pt's response to this tension and their 's response are actively trigger each other's attachment issues. Pt shared they have more of an avoidant attachment, where their is more preoccupied and fearful. Pt shared they have tried to talk with their multiple times, but there are still issues. Pt was encouraged to maintain their boundaries and sit down as a family to discuss the you, me, and we of their relationship. The goal is to establish some expectations and identify boundaries related to mental health. Pt also receptive to creating a safety plan that included warning signs, coping skills, and ways to make their environment safe. Pt identified warning signs as, withdrawing, escapism, and urge to self-harm. Pt also came up with coping skills like meditation, healthy distractions, deep breathing, and visualizing a safe place. Risks/Concerns:: Pt denies any active SI, plan, or intent as of 03/30/24. Pt completed a safety plan that pt reports can also help pt in general when her emotions are intense. Pt is future oriented, sharing pt is looking forward to a date this weekend with their partner. Progress Toward Goals/Plan:: Pt's second day of PHP tx and pt reports feeling better than yesterday. Pt shared pt finds the group topics beneficial and interesting. Pt also reports using healthy coping skills last night when pt was disappointed about plans getting changed. Pt receptive to homework in session today and completed a safety plan. Pt's symptoms continue to impact their daily functioning, relationships, and overall mood. Pt will continue PHP tx to prevent decompensation, increase distress tolerance skills, and reduce isolation. Time Stopped:: 12:58
--- NOTE | 2024-03-31 09:40 | BH.NA ---
Physical Data Vital Signs Pulse Rate: 64 Blood Pressure: 140/78 Height/Weight Height: 1.7 m Weight:: 122.47 kg Weight in Pounds: 270.0 lbs Current Medication Compliance Medication Compliance Do you take your medication as prescribed?: Yes Nutritional History Appetite Nutritional Instructions: Describe your appetite:: Fair Additional nutritional information:: Client states she has been having a lot of GI issues with frequent BM's after eating. Client states her appetite varies, and her weight usually varies within 260-270lbs. Functional Assessment Sleep Pattern Describe any problems with sleeping: Client states she is sleeping 12-14 hours everyday, including naps during the day. Sensory/Communication Assess Vision Problems Do you have any vision problems?: Glasses Communication Problems Do you have difficulty understanding what people are saying?: No Medical Problems/History Cardiac Conditions Cardiovascular: Other (See comments) (high triglycerides- not treated at this point) Neurological Conditions Neurological: Seizures (Client states she last had a grand mal seizure in February of this year, and states she does have absent partial seizures at times. Client is on several medication for seizures, but states she has not recently seen a neurologist) Metabolic Conditions Metabolic: Other (See comments) (PCOS) Gastrointestinal Conditions Gastrointestinal: Other (See comments) (IBS) Musculoskeletal Conditions Musculoskeletal: Other (See comments) (states she has been having an unsteady gait, uses a cane at times) Pain Assessment Do you have acute or chronic pain?: Yes (generalized- takes Ibuprofen or Tylenol) Family History Family History Grandmother Diabetes Grandfather Heart disease Hypertension Father Hypertriglyceridemia Mother PCOS (polycystic ovarian syndrome) Sister PCOS (polycystic ovarian syndrome) Additional History Additional comments:: Client states for the past 3 years she had had health issues, and the last year she has had consistent issues with general body aches/pains, unsteady gait, cognitive issues with short term and ocean transportation intermediary memory loss- client states she has had some testing done and is awaiting results of a tilt table test, and states she recently changed insurances and will be perusing seeing a new PCP and seeing neurology Substance Abuse Substance Abuse Please describe substance abuse in the last 30 days:: Client states she typically is a social alcohol user, but states she has not had alcohol since her suicide attempt in February. Client states she occasionally uses cigarettes and vapes nicotine constantly since she was 19. Client states she has a medical marijuana card but states she has not used any in the last year. Client states she uses 200-300 mg of caffeine per day, including a caffeine patch she wears on her skin (and is currently wearing). Mental Status Summary Mental Status Significant Findings/Observations on Appearance and Mood:: Client is alert and oriented x 4. Client is casually groomed. Client is cooperative with assessment. Client makes good eye contact. Client's voice has normal rate and volume. Client has a somewhat constricted affect. Client makes logical associations and has normal processing. Client reports some recent memory loss, but is able to answer medical questions sufficiently. Client states in the past 3 years, she has had about 5 out of body experiences, stating she disconnects from reality during these episodes and does not know it until the episode ends. Client states sometimes during an episode, the experience feels positive but sometimes does not. Client does report passive SI, but states she has no intent at this time, stating I wouldn't want to hurt the people I care about, so even if I have to pretend, I will stick around for them. Suicide Assessment Suicidal Ideation Are you currently or have you been suicidal in the past?: Yes Suicidal Intentional Rating Scale (SIRS): Current suicidal thoughts/No plan/Contracts for safety (passive SI, denies plan or intent at this time) Physician Notification Past Psychiatric History MH Treatment Hx Past Psychiatric Medications:: Hydroxyzine and current medications Age of first mental health symptoms: Client states she has had symptoms of anxiety/depression for as long as she can remember, but states she has been on medication for mental health since around age 22. Describe (age, circumstance, etc) any past hospitalizations: February 2024- [facility] after a suicide attempt with alcohol. March 2024- [facility]- SI Current providers for mental health treatment (counselor, psychiatrist, correctional counselor/case manager, etc.): therapist in a private practice, a [employer] at [facility] for psychiatry Fall Risk Assessment Age Age: Less than 60 Mental Status Mental Status: Willing & able to ask for assistance when needed Physical Status Physical Status: No problems Impairments Impairments: None Elimination Elimination: Continent AND independent Gait or Balance Gait or Balance: Walks with assistive device (e.g. cane, walker) (cane at times, states gait is unsteady at times) Hx of Falls History of falls in the past 6 months: Near falls OR fear of falling Medications/Substances Psychotropics:: Antidepressants and Antipsychotics Medications/substances used within the past 24 hours or ordered to administer: 1-2 of the medications/substances listed above Total Score Total Points:: 3 RN Summary of Impressions Impressions Recommendations Impressions: Psychiatric Issues: 1. Major depressive disorder, recurrent, severe without psychosis 2. PTSD 3. Borderline personality disorder 4. Nonepileptic seizures, cannot rule out epileptic seizures 5. History of bulimia with purging by laxative and vomiting (most recent episode 6 months ago) 6. Chronic pain and balance issues Impression: General Medical Conditions: Client states she is in the process of finding a new PCP due to her old PCP being out of network for her new insurance. Client states she was recently prescribed Vimpat for seizures, but has run out of the medication at this time. Client also states that her old PCP was aware of her high triglycerides, but was not treating them at this point. Client also acknowledges she needs to set up care with a neurologist for her seizure care. Level of Care How do the client's current symptoms and functional deficits support need for this level of care?: Client was referred to IOP after recent hospitalizations after a suicide attempt in February of 2024. Client has a history of two other suicide attempts. Client states usually leading up to a suicide attempt, she feels lonely and not good enough. Client states in February 2024 when she was on a cruise and had a lot of alcohol to drink, she was lonely and upset that she felt friends had taken advantage of her. Client states during this was the last seizure she has had. Client was hospitalized after this at [facility] and then [facility]. Client states her stressors include not being able to work due to her mental health and physical health and the financial burden her medical bills have put on the people she cares about. Client reports she has been having chronic pain constantly for the last year without a known cause. Client also reports issues with GI system, unsteady gait, and cognitive issues with memory and slurring words at times. Client states she is still getting medical tests done but has not gotten a diagnosis with her current issues. Client reports some passive SI, but states she has no plan or intent at this time. IOP/PHP will promote gains and prevent further decompensation while providing social support and skills training.
--- NOTE | 2024-03-31 10:10 | BH.SGPN.GN ---
Behaviors/Verbalizations/Mental Status: [] Eye contact is fair. Motor activity is appropriate. Appearance is casual. Speech is Appropriate. Mood is dysthymic. Affect is constricted. Thoughts are linear and logical. No evidence of psychosis. Client Response/Progress/Benefit: [] Pt responded well to session AEB contributing to small group discussion, taking notes, and listening attentively to others. Group defined anger and discussed the benefits of managed anger and anger as a secondary emotion. Group shared perspective on personal benefits of anger as advocating for self. Pt completed worksheet on anger triggers and personal warning signs of anger. Pt identified a common trigger for them is when plans fall through. Pt able to create their personal anger cycle. Appeared to benefit from increased knowledge of the anger cycle as well as personal triggers. Will continue PHP to increase healthy coping skills, challenge distorted thoughts, and prevent decompensation.
[2024-03-31 10:23] VITALS: BP 140/78; PULSE 64
--- NOTE | 2024-03-31 11:15 | BH.SGPN.GN ---
Behaviors/Verbalizations/Mental Status: []Client alert and oriented, casually dressed and groomed. Eye contact fair to good. Motor activity appropriate. Speech within normal limits. Affect congruent, mood content. Thoughts linear, logical, no signs of hallucinations or delusions. Client Response/Progress/Benefit: []Pt was engaged throughout AEB contributing to group discussion and activity. Group processed how they each responded to the intentionally difficult task they were asked to completed and described the physical and emotional anger cues experienced throughout, as well as strategies used for managing these frustrations. Pt contributed as group brainstormed healthy coping skills for better managing anger which included: music, walking/exercise, taking a break, healthy venting, avoiding unnecessary stressors, reflection, and journaling. Pt identified plans to work on better identifying where they are at in the anger cycle and address those symptoms. Pt appeared to benefit from identifying different techniques to manage anger as well as gaining awareness of potential consequences of unmanaged anger. Pt to continue IOP to promote use of healthy coping skills, challenge distortions, and prevent decompensation.
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
--- NOTE | 2024-03-31 13:00 | BH.DR.ITP ---
Initial Treatment Plan Patient Information Visit Information: ADMISSION DATE: EXPECTED LOS: 4-6 weeks Problems/Symptoms Problem #1:: Depression Symptom:: Sadness, guilt, low energy, hypersomnia, reactive moods, thoughts of self-harm, chronic, passive suicidal ideation with several plans Problem #2:: Anxiety Symptom:: Worry, rumination, panic attacks, dissociation, flashbacks, hypervigilance, avoidance
--- NOTE | 2024-03-31 14:50 | BH.MDN ---
Multi-Disciplinary Note Note 45-min Individual: Time Started:: 12:20 Date: 03/31/24 Purpose of session/treatment goals addressed:: To work on goal #1 objective #2 of pt's tx plan. Eye Contact:: Fair Motor Activity:: Appropriate Appearance:: Neat Speech:: Appropriate Mood:: Depressed and Other (hopeful) Affect:: Congruent Thoughts:: Linear, Other (distortions) and No evidence of hallucinations/delusions noted Staff Interventions:: thought challenging, mindfulness skills, strengths perspective, goal setting, taught coping skills and other (worked on building daily habits) Client Response:: Pt responded well to session, open to meeting with therapist. Pt shared they are feeling depressed and skeptical that things can improve. Pt stated they are having thoughts like what's the point of using skills if I will have bad days in the future. Pt reflected on their history with depression and shared that they have only had periods of time in their life when they have been motivated, hopeful, and happy. Pt reported their perspective currently is negative towards treatment and using skills due to knowledge that they do not have a purpose and logically good things do not last. Pt receptive to discussion on looking at life through moments of connection as a purpose as well as using dialectical thinking. Pt shared they used to be very inspired by the idea of creating moments to remember each day. Pt stated they did this when they were happy and it helped them maintain that. Pt receptive to applying this again in their current life and searching for or creating moments each day. Pt also receptive to looking at their behaviors/activity during their happy period. Pt shared during that time they were regularly exercising, spending time doing fun things with supports, working, and engaging in their hobbies. Pt receptive to getting back into some these habits and pt got their phone out to put these habits in their habit carolyn that they used to use. Also discussed how creating a balance of routine with breaks will prevent burnout and help pt maintain stability longer. Pt shared belief that their happiness did not last long because they were avoiding other responsibilities. Risks/Concerns:: Pt reports passive SI today with no plan or intent. Pt met with Dr. Gee today and no medication changes were made. Pt is future oriented. Still no access to alcohol at home, weapons, or stockpiles of medications. Progress Toward Goals/Plan:: Pt is responding well to PHP tx as pt has been consistent with attendance and reports benefitting from the group sessions. Pt's symptoms have not decreased much, which is to be expected. Pt reports they have been utilizing coping skills outside of IOP, but they continue to have hopelessness and doubt that things will improve frequently. Pt receptive to thought challenging today and identifying habits to begin again. Pt will continue PHP tx to prevent decompensation, improve daily functioning, and reduce SI. Time Stopped:: 13:00
--- NOTE | 2024-04-01 08:51 | BH.COMM ---
Communication Note Communication with Client Communication Note: Pt called to cancel their scheduled PHP group and individual sessions today due to physical pain from her chronic health conditions. Pt will be seen tomorrow.
--- NOTE | 2024-04-02 09:00 | BH.SGPN.GN ---
Behaviors/Verbalizations/Mental Status: [] Pt alert and oriented, neatly dressed and groomed. Eye contact good. Motor activity appropriate. Speech within normal limits. Affect congruent, mood euthymic. Thoughts linear, logical, no signs of hallucinations or delusions. Reviewed pt?s symptom tracker, no risk for suicidal ideation, plan, or intent 04/02/24. Pt's self-report for SI on the daily symptom tracker is within pt's baseline. Client Response/Progress/Benefit: []Pt responded well to session, attentive and engaged. Pt reports feeling proud this morning as pt reports using coping skills yesterday to manage triggers that in the past would have led to isolation and spiraling. Pt shared they set boundaries, practiced self-care, and practiced identifying mental health wins even though pt was not at [facility] yesterday. Pt's stressor is their health issues including pain and seizures. Pt appeared to benefit from reflecting on progress and connecting with peers. Pt will continue [facility] tx to promote mood stability, increase distress tolerance skills, and improve daily functioning. Narrative Note: []
--- NOTE | 2024-04-02 10:15 | BH.SGPN.GN ---
Behaviors/Verbalizations/Mental Status: []Patient was alert and oriented, casually dressed and groomed. Eye contact was good, motor activity normal, speech within normal limits. Affect congruent, mood content. Thoughts linear, logical, no signs of hallucinations or delusion Client Response/Progress/Benefit: []Pt participated in the group discussions AEB providing input and taking notes. Attentive during psychoeducation Goal Setting. Participated during the discussion on common barriers and pt identified some personal barriers as unrealistic expectations, past failures, and being distracted by other things. Group also identified benefits of goals as sense of purpose, improved self-confidence, more motivation for other goals, and improved mental health. Benefited from increased awareness of mental health benefits of goals as well as psychoeducation on SMART goal criteria. Will d/c from php and continue in IOP to improve mood stability, reduce negative thinking patterns, and prevent decompensation. ? Narrative Note: []
--- NOTE | 2024-04-02 11:15 | BH.SGPN.GN ---
Behaviors/Verbalizations/Mental Status: []Pt alert and oriented, casually dressed and groomed. Eye contact good. Motor activity appropriate. Speech within normal limits. Affect constricted, mood anxious. Thoughts linear, logical, no signs of hallucinations or delusions. Client Response/Progress/Benefit: [] Pt was engaged during discussion and willing to complete the worksheet challenging them to develop a personal SMART goal. Pt chose the goal of using their ME schedule carolyn daily to create a healthy routine. Pt stated forgetting as a potential barrier. Identified solution as setting reminders on their phone. Benefited from this group by developing a short-term SMART goal related to mental health. Will continue PHP tx to improve distress tolerance, increase healthy coping skills, and prevent decompensation.
--- NOTE | 2024-04-02 14:30 | BH.MDN ---
Multi-Disciplinary Note Note 30-min Individual: Time Started:: 12:15 Date: 04/02/24 Purpose of session/treatment goals addressed:: To work on goal #1 of pt's tx plan. Eye Contact:: Good Motor Activity:: Appropriate Appearance:: Neat Speech:: Appropriate Mood:: Euthymic Affect:: Congruent Thoughts:: Linear, Logical and No evidence of hallucinations/delusions noted Staff Interventions:: thought challenging, CBT techniques, strengths perspective, goal setting and other (DBT skills on distress tolerance.) Client Response:: Pt responded well to session, open to meeting with therapist. Pt had canceled their scheduled PHP session yesterday due to issues with their chronic pain. Pt stated they initially felt guilty, but they were proud of themselves for taking time to care for their body instead of pushing their limits. Pt shared they practiced self-care yesterday including taking a bath, some cleaning, and playing video games which pt has not done in a while. Pt shared they were having a lot of good moments, but then they had passive SI which irritated pt. Pt stated I just think when will that go away. Discussed taking a non-judgmental stance towards their thoughts and reminding themselves that thoughts are not facts and they do not mean they will act. Pt reported this was helpful because when pt has SI they feel guilt because pt's last attempt was very scary for my girlfriend. Pt stated they benefitted from group today which was goal setting. Pt is setting a goal to get back into using their daily reminder carolyn to increase motivation and get tasks accomplished around the house. Pt was also given homework on distress tolerance skills. Risks/Concerns:: Pt reports having passive SI last night that was easy to dismiss. Pt reports these thoughts tend to happen when pt spends extended periods of time alone and pt was alone last night. Pt denies any active SI, plan, or intent. Pt continues to be future oriented, talking about their goal to get back into a previous career and currently taking classes for this. Pt is also looking forward to the weekend. Progress Toward Goals/Plan:: Pt is making progress on their PHP tx goals AEB pt's report of benefitting from group sessions, self-report of utilizing healthy coping skills outside of IOP, and benefit from the structure of PHP and getting out of the house. Pt's would like to continue PHP tx through next week as pt feel this is prevent decompensation and pt does not yet feel ready to step down to IOP. Therapist agrees and will plan to see pt for PHP tx next week. Time Stopped:: 12:45
--- NOTE | 2024-04-05 09:05 | BH.SGPN.GN ---
Behaviors/Verbalizations/Mental Status: [] Eye contact is good. Motor activity is appropriate. Appearance is casual. Speech is Appropriate. Mood is depressed and anxious. Affect is congruent. Thoughts are linear and logical. No evidence of psychosis. Reviewed daily check in sheet and pt reports 2/5 for suicidal ideations and 0/5 for intent. Meeting with therapist today. Client Response/Progress/Benefit: [] Pt participated at times during the group discussion. Attentive. Daily symptom tracker notes 4/5 for depression and 2/5 for irritability as well as self-harm urges. Shared that she attended a social event over the weekend in which theier was a considerable about of alcohol. She was proud of herself for abstaining. Briefly elaborated on the role that alcohol played in a recent psychiatric admission. She also was able to challenge a belief and perspective over the weekend which motivated her to reach out to a friend. Stressor was that she encountered a trigger from the past which caused a stream of overwhelming emotions which is continues to experience today. Mixed progress noted per pt report. Benefited from group support, encouragement, and feedback. Will continue in IOP to maintain safety, prevent decompensation/re-admission to psych unit, and to improve functioning. Narrative Note: []
--- NOTE | 2024-04-05 10:15 | BH.SGPN.GN ---
Behaviors/Verbalizations/Mental Status: []Client alert and oriented, casually dressed and groomed. Eye contact good. Motor activity appropriate. Speech within normal limits. Affect congruent, mood dysthymic. Thoughts linear, logical, no signs of hallucinations or delusions. Client Response/Progress/Benefit: []Pt was an active participant, AEB taking notes and providing input in group discussions and activities. Attentive during psychoeducation. Pt engaged during interactive discussion in which the group defined self-care and discussed its benefits. Group discussed barriers to engaging in self-care. Group members together came up with guilt, time, urge to put others first, not knowing what to do for self-care, and perception that its unproductive as barriers to engage in self-care. Pt stated their personal barrier is ?lack of resources and telling themselves they have too many other responsibilities.? Pt participated in small groups where they worked to identified and challenged common self-care ?myths?. Benefited from increased awareness of self-care, its benefits, and the consequences of not utilizing self-care strategies. Will continue PHP tx to prevent decompensation, gain healthy coping skills, and gain social supports. Narrative Note: []
--- NOTE | 2024-04-05 11:15 | BH.SGPN.GN ---
Behaviors/Verbalizations/Mental Status: [] Client alert and oriented, casually dressed and groomed. Eye contact good. Motor activity appropriate. Speech within normal limits. Affect congruent, mood dysthymic. Thoughts linear, logical, no signs of hallucinations or delusions. Client Response/Progress/Benefit: []Client engaged in discussion reviewing different areas of self-care and completing self-assessment of current self care, as well as providing input throughout discussion. Client completed worksheet identifying current self-care practices and what self-care activities client wants to start using. Client selected physical self-care to begin practicing more consistently. Client plans to do this by starting a regular yoga practice. Appeared to benefit from completing the self-care evaluation and gaining insights into current self-care practices, as well as identifying areas in which client would like to improve upon. Client will continue IOP tx to prevent decompensation and increase emotional regulation and behavior activation skills. Narrative Note: []
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
--- NOTE | 2024-04-06 11:10 | BH.SGPN.GN ---
Behaviors/Verbalizations/Mental Status: []Pt alert and oriented, casually dressed and groomed. Eye contact fair. Motor activity appropriate. Speech within normal limits. Affect constricted, mood anxious. Thoughts linear, logical, no signs of hallucinations or delusions. Client Response/Progress/Benefit: [] Pt responded well to session, taking notes and participating in worksheet discussion. Pt connected with the discussion on motion vs action steps, and this helped pt learn how to set goals differently. Pt set a goal to decrease isolation and avoidance tendencies. Pt identified motion steps including doing activities in public space and talk out issues in support group. Pt also made action steps which included texting good morning and daily update, limiting video games to 2 hours a day, and add changes to their schedule carolyn. Appeared to benefit from identifying a small goal to benefit mental health. Client it to continue PHP to increase healthy coping, challenge distortions, and prevent decompensation.
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
== END 2024-04-07 23:59 ==
LOC: BHPHP 08:00
PROVIDERS: PCP Internal Medicine; Referring Provider Psychiatry & Neurology Psychiatry; Visit Provider Psychiatry & Neurology Psychiatry
DX: F33.2 Major depressive disorder, recurrent severe without psychotic features (principal); F60.3 Borderline personality disorder; F43.10 Post-traumatic stress disorder, unspecified; G40.89 Other seizures; F50.2 Bulimia nervosa; G89.29 Other chronic pain; R27.0 Ataxia, unspecified; Z79.899 Other long term (current) drug therapy
CPT/HCPCS: H0035; 90832; 90834; 90837; G0410

== ENCOUNTER 2024-04-08 07:16 | Outpatient (RCR) | payer OTHER, SELFPAY ==
[2024-04-08 00:54] VITALS: BP 140/78; PULSE 64
--- NOTE | 2024-04-08 09:02 | BH.SGPN.GN ---
Behaviors/Verbalizations/Mental Status: [] Client alert and oriented, casual appearance. Eye contact fair. Motor activity appropriate. Speech within normal limits. Affect constricted, mood anxious. Thoughts linear, logical, no signs of hallucinations or delusions. Reviewed client's symptom tracker, no risk for suicidal ideation, plan, or intent. Client Response/Progress/Benefit: [] Client responded well to session AEB listening to others and sharing thoughts/feelings. Client reported mental health positive as deciding to take of self yesterday by leaving PHP early because she could feel a seizure coming on. Client stated additional positive as able to have good moments yesterday despite having a seizure. Client reported usually when she has a seizure it wipes my day out and she can't get much done. Client stated current stressor as her taking days off work on a consistent basis which increases her financial stress. Reported she can't work because on disability and is concerned if he keeps taking time off. Appeared to benefit from support from peers. Will continue PHP to improve distress tolerance, increase healthy coping skills, challenge distortions, and prevent decompensation.
--- NOTE | 2024-04-08 10:10 | BH.SGPN.GN ---
Behaviors/Verbalizations/Mental Status: [] Eye contact is good. Motor activity is appropriate. Appearance is casual. Speech is Appropriate. Mood is depressed. Affect is congruent. Thoughts are linear and logical. No evidence of psychosis. Client Response/Progress/Benefit: [] Pt was an engaged participant AEB listening attentively to others, taking notes, and providing feedback in small group discussions. Attentive during psychoeducation AEB by note taking and providing some input. Pt worked along with peers in small groups to define inappropriate guilt and appropriate guilt. Interactive discussion on examples of both inappropriate and appropriate guilt. Pt able to connect impact inappropriate guilt can have on MH. Benefited from increased awareness of guilt and the differences between appropriate and inappropriate guilt. Plan is to continue in PHP to maintain safety, prevent decompensation/re-admission to psych unit, increase healthy coping, and improve functioning. Narrative Note: []
--- NOTE | 2024-04-08 11:15 | BH.SGPN.GN ---
Behaviors/Verbalizations/Mental Status: []Pt alert and oriented, casually dressed and groomed. Eye contact good. Motor activity appropriate. Speech within normal limits. Affect congruent, mood dysthymic. Thoughts linear, logical, no signs of hallucinations or delusions. Client Response/Progress/Benefit: []Pt engaged participant AEB listening attentively to others and providing input throughout group. Pt worked within their small group to identify strategies to manage inappropriate guilt. Identified a personal example of inappropriate guilt as ?using someone's incorrect pronouns? Insight cues a feeling of ?fear of making someone uncomfortable? Pt wants to work on combatting inappropriate guilt by correcting the distortions and practicing sitting with the uncomfortable. Pt seemed to benefit from learning about strategies to manage appropriate and inappropriate guilt. Pt d/c from PHP and start IOP level of care to continue to improve functioning, prevent decompensation, and promote mood stability. ? Narrative Note: []
--- NOTE | 2024-04-08 14:05 | BH.MDN ---
Multi-Disciplinary Note Note 45-min Individual: Time Started:: 12:20 Date: 04/08/24 Purpose of session/treatment goals addressed:: To review pt's progress in PHP and to process current stressors impacting pt's mental health. Eye Contact:: Good Motor Activity:: Appropriate Appearance:: Neat Speech:: Appropriate Mood:: Other (calm) Affect:: Congruent Thoughts:: Linear, Logical and No evidence of hallucinations/delusions noted Staff Interventions:: thought challenging, motivational interviewing, CBT techniques, strengths perspective, goal setting, taught coping skills and other (attachment styles) Client Response:: Pt responded well to session, open to meeting with therapist. Pt reports feeling okay today as pt feels they are coping better in a many ways, but they still have low energy. Pt is also stressed about their relationship with their . This has been an ongoing stressor for months, but pt feels that without a change in their relationship, pt's mental health will not improve much. Pt stated they have tried to communicate their perspective and needs with their , but it does not always go over well. Pt shared they have read through the attachment styles with their and they can see how their styles lead to tension. Pt shared I need space and I need to be in the quiet and my is the least quiet person ever. Pt reported this causes pt's to get anxious and frustrated so he wants to be close to me which makes me want to push him away. Pt recognizes that their attachment style is related to trauma and pt feels sad that they are hurting their , but pt also knows they are worthy of alone time. Pt plans to talk with their again tonight and pt understands they can bring their in for a session if needed. Risks/Concerns:: Pt denies any active SI, plan, or intent as of 04/08/24. Progress Toward Goals/Plan:: Pt continues to make progress towards their tx goals AEB pt's report of utilizing healthy coping skills outside of PHP and reduced SI. Pt has been working on reducing isolation, getting a routine, and improving their connection with their . Pt's relationship with their is pt's biggest stressor currently. Pt continues to endorse a depressed mood, with low energy, and ruminations. Pt will continue PHP tx for one more session to reinforce healthy coping skills and improve mood stability. Time Stopped:: 13:00
--- NOTE | 2024-04-09 09:05 | BH.SGPN.GN ---
Behaviors/Verbalizations/Mental Status: []Pt alert and oriented, neatly dressed and groomed. Eye contact good. Motor activity appropriate. Speech within normal limits. Affect congruent, mood euthymic. Thoughts linear, logical, no signs of hallucinations or delusions. Reviewed pt?s symptom tracker, no risk for suicidal ideation, plan, or intent 04/09/24 Client Response/Progress/Benefit: []Pt responded well to session, attentive and engaged. Pt reports feeling cautiously optimistic this morning as pt feels they had a really good conversation with my and they plan to go on a date this afternoon. Pt stated this is a big win because pt and their have been pretty distant over the past few weeks. Pt shared they have been using skills outside of group and they were able to work some yesterday which was a win. Pt's stressor today is ongoing financial issues that lead to tension at home and rumination. Pt appeared to benefit from reflecting on progress and connecting with peers. Pt will discharge from [facility] today as pt no longer meets criteria for PHP and transition to IOP level of care starting 04/13/24. Narrative Note: []
--- NOTE | 2024-04-09 10:25 | BH.SGPN.GN ---
Behaviors/Verbalizations/Mental Status: []Pt alert and oriented, casually dressed and groomed. Eye contact good. Motor activity appropriate. Speech within normal limits. Affect congruent, mood content. Thoughts linear, logical, no signs of hallucinations or delusions. Client Response/Progress/Benefit: [] Pt took notes and contributed throughout group discussion. Attentive during psychoeducation on fixed mindset and how a fixed mindset can impact mental health, resilience, and relationships. Participated during the interactive group discussion on fixed mindset in which group verbalized their current fixed mindsets and how they affect their mental health. Pt shared common fixed mindset thoughts they have which included I?ll always be depressed?, ?My relationship will always be stressed?, and ?We?ll never be financially stable?. These thoughts lead to being scared to fail, low self-esteem, and relationship tension/conflict. Pt benefited from increased awareness of growth mindset and fixed thoughts and how fixed thoughts impact their mental health. Will d/c from PHP and continue IOP tx to prevent decompensation, maintain safety, and gain healthy coping skills. Narrative Note: []
--- NOTE | 2024-04-09 11:15 | BH.SGPN.GN ---
Behaviors/Verbalizations/Mental Status: []Pt alert and oriented, casually dressed and groomed. Eye contact good. Motor activity appropriate. Speech within normal limits. Affect constricted, mood content, anxious. Thoughts linear, logical, no signs of hallucinations or delusions. Client Response/Progress/Benefit: [] Pt was an active participant during activity and discussion. Pt did well to remain attentive and participate as group worked on identifying characteristics and benefits of adopting a growth mindset. Worked with fellow participants in reframing the example fixed thoughts into growth mindset thoughts. Pt worked on changing own fixed thought and reframed the thought to ?I have the tools to begin making changes, so I can beat my depression. Pt appeared to benefit from challenging own thoughts and engaging in the activity. Pt will discharge from [facility] today and drop down to IOP level of care.
--- NOTE | 2024-04-09 14:05 | BH.MDN_ITS ---
Multi-Disciplinary Note Note Family: Time Started:: 12:15 Date: 04/09/24 Purpose of session/treatment goals addressed:: To bring pt's support person in for psychoeducation, address any relationship triggers impacting pt's mental health, and to improve support in general. Eye Contact:: Good Motor Activity:: Appropriate Appearance:: Neat Speech:: Appropriate Mood:: Euthymic and Anxious Affect:: Congruent Thoughts:: Linear, Logical and No evidence of hallucinations/delusions noted Staff Interventions:: thought challenging, psychoeducation on: (attachment styles), CBT techniques, mindfulness skills, strengths perspective, goal setting, taught coping skills and other (discussed different strategies to build connection and support.) Client Response:: Pt and responded well to session, open to meeting with therapist. Pt had goals for session to address their attachment styles and their 's attachment style and how these create a vicious cycle. Pt and their have been in a rut for a while according to pt and pt feels it is partially my fault due to pt isolating and shutting down when depressed. Pt's shared feeling neglected and frustrated, but he also wants to be supportive. Pt shared the difference in attachment styles and love languages tend to cause tension and conflict. Pt feels they are more avoidant attachment and their love language is quality time, whereas their is more anxiously attached and his love language is physical touch. Pt reports they have told their before that the first thing to go and the last thing to come back is physical touch but he is struggling with accepting this. Pt and their responded well to the psychoeducation on attachment styles and how to work on improving their connection. Therapist gave pt's a handout for additional ideas. Pt shared they have been working on not isolating as much and they were willing to discuss ways to improve connection. Together we came up with an idea to create a chart that would give ideas for low, medium, and high energy activities that the couple could do together. Pt feels this would help them because they could point to their energy level for the day and their could pick an activity. Risks/Concerns:: Pt denies any active SI, plan, or intent. Progress Toward Goals/Plan:: Pt continues to make progress towards their tx goals and will be discharging from [facility] today. Pt will transition to IOP tx next week on Friday to continue working on mood stability, emotional regulation, and distress tolerance skills. Time Stopped:: 12:58
--- NOTE | 2024-04-09 14:06 | BH.DS_ITS ---
Discharge Summary Demographics Date of Admission:: 03/29/24 Discharge Date: 04/09/24 Presenting Problems at Admission:: Pt is a 28 non-binary adult who was referred to [facility] tx due to two recent psychiatric admissions for suicide attempt by excessive alcohol consumption. Pt's most recent hospitalization was at [facility] and pt reports they were life flighted and treated medically first. Pt reports stressors of finances, loss of job, chronic health issues, relationship stress, and low distress tolerance as contributors to pt's SI. Pt denies active SI since discharge from inpatient, but pt does admit to chronic SI that is passive. Pt currently endorses a depressed mood with hopelessness, worthlessness, anhedonia, lack of energy, lack of motivation, negative thoughts of self, and rumination. Pt's symptoms have impacted their ability to work, function at home and their relationships. Discharge Diagnoses:: Major depressive disorder, recurrent, severe without psychosis F 33.2; PTSD; Borderline personality disorder; Nonepileptic seizures, cannot rule out epileptic seizures; History of bulimia with purging by laxative and vomiting Reason for Discharge:: Pt has made progress in [facility] level of care and reports their symptoms of depression are reducing. Pt also denies any SI. Pt will transition to [facility] level of care starting 04/12/24. Treatment Progress During Treatment & Response: Pt did well in [facility] tx AEB pt's consistent attendance, engagement in group and individual sessions, and self-report of applying coping skills. Pt reports a reduction in isolation, reduced SI, and improving functioning. Issues Still to be Addressed:: Pt can benefit from increasing distress tolerance skills, increasing application of healthy coping skills, further reducing negative thought patterns, gaining insight to their attachment style, and managing interpersonal relationships. Discharge Recommendations/Instructions:: Case discussed with team with plan to discharge from [facility] as pt no longer meets criteria for this level of care. Plan to start IOP next week. Discharge Handout
--- NOTE | 2024-04-20 10:50 | BH.COMM ---
Communication Note Communication with Client Communication Note: Pt had to leave early yesterday due to illness and canceled today due to illness. Pt plans to attend on 04/23/24.
== END 2024-04-09 14:22 | disposition home or self-care (01) ==
LOC: BHPHP 07:16
PROVIDERS: PCP Internal Medicine; Referring Provider Psychiatry & Neurology Psychiatry; Visit Provider Psychiatry & Neurology Psychiatry
DX: F33.2 Major depressive disorder, recurrent severe without psychotic features (principal); F43.10 Post-traumatic stress disorder, unspecified; F60.3 Borderline personality disorder; G40.89 Other seizures; F50.2 Bulimia nervosa
CPT/HCPCS: H0035; 90834; 90847; G0410

== ENCOUNTER 2024-04-13 08:00 | Outpatient (RCR) | payer OTHER, SELFPAY ==
--- NOTE | 2024-04-14 10:10 | BH.SGPN.GN ---
Behaviors/Verbalizations/Mental Status: [] Eye contact is good. Motor activity is appropriate. Appearance is casual. Speech is Appropriate. Mood is euthymic. Affect is congruent. Thoughts are linear and logical. No evidence of psychosis. Client Response/Progress/Benefit: [] Pt was an active participant during group discussions and group activities. This portion of group was very psychoeducation heavy and pt was attentive during psychoeducation. Engaged during activity in which they identified which type of foods (i.e. carbs, sugar, salt, fast food, caffeine, etc) they seek out when sad, tired, angry, stressed, anxious, etc. Pt was able to identify the impact that certain foods have on their mental health through group example which was beneficial. Reported connecting with the impacts alcohol can have on sleep and memory. Benefited from increased awareness of the connection between nutrition and mental health. Will continue in IOP to prevent decompensation, stabilize mood, and increase healthy coping skills. Narrative Note: []
--- NOTE | 2024-04-14 11:10 | BH.SGPN.GN ---
Behaviors/Verbalizations/Mental Status: []Pt alert and oriented, casually dressed and groomed. Eye contact good. Motor activity appropriate. Speech within normal limits. Affect congruent, mood euthymic. Thoughts linear, logical, no signs of hallucinations or delusions. Client Response/Progress/Benefit: []Pt was an active participant throughout AEB contributing to group discussion and taking notes. Pt provided input during small group discussion on strategies to combat each factor maintaining adverse nutritional cycles. Worked with group to identify ways to foster more mindful nutritional choices. Each group participant identified one small step they could take today to begin establishing mental wellness promoting nutritional choices. 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 Appeared to benefit from gaining insight into mental wellness centered nutrition and identifying personal steps pt can take to support own nutritional psychology. Recommended continued IOP tx to reduce isolation, increase distress tolerance skills, and improve mood stability. ? Narrative Note: []
--- NOTE | 2024-04-14 11:56 | PCM.BH.PN_ITS ---
Progress Note Progress Note: History of Present Illness/Interim History: The patient is a 28-year-old female with a long history of depression, anxiety, mood changes who is seen in follow-up at the [facility] health [facility]. I last saw the patient 2 weeks ago and no medication changes were made at that time. The patient is today seen as she is being stepdown from partial hospitalization or PHP to [facility]. She feels she is learning valuable skills in the [facility] and has been engaged in the program although she missed a few days due to physical pain issues. The patient states that her mood is somewhat better and less depressed lately. She no longer has any passive thoughts of and denies passive suicidal ideation in the last week which has been chronic for her in the past when she is alone. She says she is sleeping about 8 hours a day now instead of 12 hours a day and still takes naps on occasion. She denies any history of self-harm by cutting. She denies any purging by laxatives. She denies any recent seizures. Patient states that she has been working on being alone in therapy here and she has been able to be alone 1 day and did quite well for the first time ever. She denies suicidal ideation, homicidal ideation, plan for suicide, hallucinations, delusions or symptoms of sanaz. Current Psychiatric Medications: [] Abilify 15 mg in the morning (increased 1 month ago); rectal 50 mg twice daily; trazodone unknown dose at bedtime; Prozac 60 mg daily (increased 6 weeks ago); Topamax 100 mg p.o. twice daily; vitamin D3 Mental Status Examination: [] The patient is an obese, female who is seen wearing glasses and has piercings in her nose and lip and bilateral tattoos on her arms. She is ambulatory with a normal gait and is not using a cane despite the fact that at times she does as she has occasional balance issues. She appears otherwise normal for stated age and is casually dressed and groomed with good hygiene. She is cooperative and pleasant during the interview and has no psychomotor agitation or retardation. Speech is normal rate and rhythm and fluent with no pressure and eye contact is good. Mood is depressed. Affect is full and normal. Thought process is goal-directed and organized. Thought content: There is no evidence of passive thoughts of , suicidal ideation, self-harm, homicidal ideation, hallucinations or delusions. Reality testing is intact. Judgment is intact. Insight is limited but some present. Diagnoses: [] 1. Major depressive disorder, recurrent, severe without psychosis 2. PTSD 3. Borderline personality disorder 4. Nonepileptic seizures, cannot rule out epileptic seizures 5. History of bulimia with purging by laxative and vomiting 6. Chronic pain and balance issues Plan: [] The patient will continue the IOP and stepdown to IOP from [facility] at [facility] as the structure, support, education and group therapy will hopefully prevent worsening of the patient's symptoms which could require rehospitalization. She felt safe during the interview and if it anytime she does not feel safe she agrees to let us know or go to the emergency room. No medication changes were made today. She will continue to follow-up with her medical and psychiatric outpatient providers and will stay sober from all alcohol or drug use. I will see the patient in follow-up while she is in the IOP.
--- NOTE | 2024-04-14 12:01 | BH.DR.ITP ---
Initial Treatment Plan Patient Information Visit Information: ADMISSION DATE: EXPECTED LOS: 4-6 weeks Problems/Symptoms Problem #1:: Depression Symptom:: Sadness, erratic moods, biological disruption of sleep, low energy, guilt, recent passive thoughts of and recent passive suicidal ideation. Problem #2:: Anxiety Symptom:: Worry, rumination, flashbacks, nightmares, hypervigilance, panic attack
--- NOTE | 2024-04-14 12:03 | BH.MTP ---
Master Treatment Plan Patient Information Program Physician:: Dr. Shawanda Gee Primary Therapist:: Ila HERNANDEZ Psychiatric Diagnoses Psychiatric Diagnoses:: Major depressive disorder, recurrent, severe without psychosis F 33.2; PTSD; Borderline personality disorder; Nonepileptic seizures, cannot rule out epileptic seizures; History of bulimia with purging by laxative and vomiting Diagnosis Code(s):: F 33.2 Estimated LOS Estimated LOS (in weeks):: 6 Problem/Goal #1 Problem/Goal #1 Stated Goal:: Pt will decrease depressive symptoms, hopelessness, worthlessness, negative self-talk, and suicidal ideations. Description of Barriers: Pt has had two suicide attempts and two hospitalizations within the past month. Pt reports their SI can be triggered by the smallest things and pt admits to being impulsive. Both pt's attempts involved alcohol. Pt has health issues and financial stress that exacerbate pt's symptoms. Functional Impact: Pt is a 28 non-binary adult who was referred to [facility] tx due to two recent psychiatric admissions for suicide attempt by excessive alcohol consumption. Pt's most recent hospitalization was at [facility] and pt reports they were life flighted and treated medically first. Pt reports stressors of finances, loss of job, chronic health issues, relationship stress, and low distress tolerance as contributors to pt's SI. Pt denies active SI since discharge from inpatient, but pt does admit to chronic SI that is passive. Pt currently endorses a depressed mood with hopelessness, worthlessness, anhedonia, lack of energy, lack of motivation, negative thoughts of self, and rumination. Pt's symptoms have impacted their ability to work, function at home and their relationships. Goal Relevant Strengths/Supports: Two strong supports at home, regret, successful completion of PHP, and motivation to improve. Objectives Objective #1: Stated Objective: Pt will learn and utilize 2-3 healthy coping strategies to better manage depressive symptoms and reduce frequency of SI as shown by a decrease of DMS-5 symptoms for depression. Interventions: Through group and individual sessions, therapist will help pt identify triggers and warning signs of depression and guilt including emotional, physical, and behavioral changes. Therapist will teach pt various coping skills to manage symptoms and give pt tangible resources to use to regulate emotions. Therapist will use cognitive restructuring techniques and help pt gain awareness of negative thoughts that reinforce guilt and depression. Therapist will provide psychoeducation on maintenance cycles and help pt learn ways to break unhealthy maintenance cycles. Therapist will help pt incorporate behavioral activation and assist pt in setting SMART goals. Discharge Criteria: Pt will have met this goal when can report learning and using at least 2 coping skills to manage depressive symptoms and reduce isolation. Additionally, pt will have met this goal when pt's DSM-5 scores for depression decrease. Target Date: 05/25/24 Review Date: 05/04/24 Status: open Objective #2: Stated Objective: Pt will identify 2 triggers and 2 coping skills to use when pt experiences mood dysregulation and has increased urges to engage in unhealthy, impulsive coping skills. Interventions: Through individual and group counseling pt will be provided with education on healthy coping skills to manage mood symptoms, impulse, and crisis behaviors. Therapist will provide information on healthy alternatives to emotion release. Individual therapist will teach pt DBT techniques to increase emotional regulation and mindfulness. Therapist will also engage pt to use self-compassion while working to change behaviors. Discharge Criteria: Pt will have accomplished this goal when pt can identify at least 2 triggers and 2 coping skills to increase mood stability and reduce unhealthy action urges. Target Date: 05/25/24 Review Date: 05/04/24 Status: open Problem/Goal #2 Problem/Goal #2 Stated Goal:: Will reduce anxiety and panic symptoms through increasing emotional regulation and distress tolerance skills Description of Barriers: Pt has had two suicide attempts and two hospitalizations within the past month. Pt reports their SI can be triggered by the smallest things and pt admits to being impulsive. Both pt's attempts involved alcohol. Pt has health issues and financial stress that exacerbate pt's symptoms. Functional Impact: Pt is a 28 non-binary adult who was referred to [facility] tx due to two recent psychiatric admissions for suicide attempt by excessive alcohol consumption. Pt's most recent hospitalization was at [facility] and pt reports they were life flighted and treated medically first. Pt reports stressors of finances, loss of job, chronic health issues, relationship stress, and low distress tolerance as contributors to pt's SI. Pt denies active SI since discharge from inpatient, but pt does admit to chronic SI that is passive. Pt currently endorses a depressed mood with hopelessness, worthlessness, anhedonia, lack of energy, lack of motivation, negative thoughts of self, and rumination. Pt's symptoms have impacted their ability to work, function at home and their relationships. Goal Relevant Strengths/Supports: Two strong supports at home, regret, successful completion of PHP, and motivation to improve. Objectives Objective #1: Stated Objective: Pt will increase ability to manage stressors and anxiety by gaining 2-3 distress tolerance skills. Interventions: Through group and individual therapy, pt will learn various coping skills to help manage stress and anxiety. Therapist will utilize DBT distress tolerance skills to increase awareness and give pt tools to more effectively manage anxiety. Therapist will provide psychoeducation on emotional regulation and help pt identify unhealthy coping skills he wants to change. Discharge Criteria: Pt will have accomplished this goal when can report improved ability to manage stressors and identify at least 2 distress tolerance skills. Target Date: 05/25/24 Review Date: 05/04/24 Status: open Objective #2: Stated Objective: Pt will identify 2-3 anxiety and panic triggers and 2 coping skills to use when feeling anxious or overwhelmed to manage anxiety as shown by reducing DSM-5 scores for anxiety Interventions: Therapist will provide education on anxiety, avoidance behaviors, and maintenance cycles. Therapist will help pt explore personal symptoms and warning signs of anxiety and irritability. Therapist will teach pt coping skills to improve emotional regulation, mindfulness, and distress tolerance to help pt cope with anxiety in the moment. Discharge Criteria: Pt will have accomplished this goal when he can identify at least 2 triggers and report using 2 coping skills to manage anxiety and irritability. Additionally, pt will have accomplished this goal AEB reduction of DSM-5 scores for anxiety. Target Date: 05/25/24 Review Date: 05/04/24 Status: open
--- NOTE | 2024-04-14 14:03 | BH.MDN ---
Multi-Disciplinary Note Note 30-min Individual: Time Started:: 09:30 Date: 04/14/24 Purpose of session/treatment goals addressed:: To work on goal #1 of pt's tx plan and to process current stressors. Eye Contact:: Good and Fair Motor Activity:: Appropriate Appearance:: Neat Speech:: Appropriate Mood:: Depressed and Other (proud) Affect:: Congruent (tearful) Thoughts:: Linear, Logical and No evidence of hallucinations/delusions noted Staff Interventions:: thought challenging, CBT techniques, mindfulness skills, strengths perspective, taught coping skills (riding the wave) and other (discussed self-care and self-compassion.) Client Response:: Pt responded well to session, open to meeting with therapist. Pt shared their feels all over the place this morning. Pt reflected on some positives including feeling better about being alone and their relationship with their improving. Pt feels emotional today because yesterday pt met up with their ex-fiance which is something pt has wanted to do for months. Pt shared he was my soulmate, and my and girlfriend know this. Pt has been working on facing things that make pt feel uneasy and finding peace in their life. Pt wanted to connect with their ex-fiance because pt wanted to address some things and let them know how much I loved them. Pt shared overall the met up went well, but pt felt emotionally drained after and had thoughts of did I make the right decision when pt decided to end the relationship. Pt stated they cried a lot last night as well. Pt stated the meeting was also emotionally difficult because their ex-fiance is quite a bit older than me and pt now worries about his health and how much time he has left. Pt responded well to discussion of mindfully feeling emotions versus over-identifying with them. Pt admits that last night they were over-identifying with their emotions and today they think fostering my current relationships will be helpful. Also discussed ways to increase intimacy in their current relationship without physical touch which pt was receptive to. Pt did well to give themselves credit for utilizing healthy skills. Risks/Concerns:: Pt reports having thoughts of today, but no active SI, plan, or intent. Pt is future oriented and reports ability to maintain safety. Progress Toward Goals/Plan:: Pt discharged from [facility] tx and began IOP tx today. Pt had made progress in PHP AEB her application of coping skills and report of reduced isolation and SI. Pt's symptoms of depression and anxiety are improving, but still impacting their daily functioning. Pt's stressors are also ongoing, but pt reports their relationship with their is improving. Pt will continue IOP tx to prevent decompensation, improve distress tolerance, and improve daily functioning. Time Stopped:: 09:56
--- NOTE | 2024-04-15 09:05 | BH.SGPN.GN ---
Behaviors/Verbalizations/Mental Status: [] Pt alert and oriented, neatly dressed and groomed. Eye contact good. Motor activity appropriate. Speech within normal limits. Affect congruent, mood frustrated. Thoughts linear, logical, no signs of hallucinations or delusions. Reviewed pt?s symptom tracker, no risk for suicidal ideation, plan, or intent 04/15/24 Client Response/Progress/Benefit: []Pt responded well to session, attentive and engaged. Pt reports feeling frustrated this morning, but they also had several mental health wins. Pt's wins included starting to get back into writing and pt wrote a poem last night. Pt also had a long discussion with their which was needed and constructive, but one of the reasons why pt feels frustrated. Pt shared their told pt some things that pt did not agree with and was discouraging towards pt's progress. Pt appeared to benefit from connecting with peers, reflecting on their progress, and gaining perspective. Pt will continue IOP tx to promote mood stability, combat distortions, and improve mood. Narrative Note: []
--- NOTE | 2024-04-15 10:10 | BH.SGPN.GN ---
Behaviors/Verbalizations/Mental Status: [] Eye contact is good. Motor activity is appropriate. Appearance is casual. Speech is Appropriate. Mood is anxious, content. Affect is congruent. Thoughts are linear and logical. No evidence of psychosis. Client Response/Progress/Benefit: [] Pt engaged participant AEB listening to others, engaging in activity, and providing feedback at times. Attentive during psychoeducation and provided insight into obstacles that impede mental wellness. Pt shared with group current mental health reality and desired mental health reality. Stating pt would like to have more confidence in their ability to make progress and follow-through with making some difficult decisions. Identified barriers to desired reality include: not asking for help, fear of the uncomfortable, and comparing self to others. Benefited from taking look at current mental health state and obstacles for progress. Pt to continue IOP tx to improve mood stability, increase confidence and coping application, and prevent decompensation. Narrative Note: []
--- NOTE | 2024-04-15 11:10 | BH.SGPN.GN ---
Behaviors/Verbalizations/Mental Status: [] Eye contact is good. Motor activity is appropriate. Appearance is casual. Speech is Appropriate. Mood is content. Affect is congruent. Thoughts are linear and logical. No evidence of psychosis. Client Response/Progress/Benefit: [] Pt was an engaged participant in group discussion and activity. Worked with group to identify strategies to help overcome barriers and obstacles to desired reality. Group developed strategies for the common barriers. Identified personal barriers to desired reality and choose one obstacle to work. Pt stated they want to work on barrier of poor motivation by starting with small goals and giving themselves credit. Pt seemed to benefit from increased repertoire of healthy coping skills/strategies to overcome common barriers to moving forward. Pt is to continue IOP to improve self-care, promote mood stability, and prevent decompensation. Narrative Note: []
--- NOTE | 2024-04-15 14:12 | BH.MDN ---
Multi-Disciplinary Note Note 30-min Individual: Time Started:: 11:45 Date: 04/15/24 Purpose of session/treatment goals addressed:: To work on distress tolerance skills and process current stressors. Eye Contact:: Good Motor Activity:: Appropriate Appearance:: Neat Speech:: Appropriate Mood:: Other (frustrated and hopeful) Affect:: Congruent Thoughts:: Linear, Logical and No evidence of hallucinations/delusions noted Staff Interventions:: thought challenging, motivational interviewing, CBT techniques, mindfulness skills, strengths perspective and goal setting Client Response:: Pt responded well to session, open to meeting with therapist. Pt reports feeling frustrated and hopeful today. Pt got back into writing poetry and they report this has been helpful. Pt also met up with their ex-fiance recently and pt felt this helped pt make peace with their decision to end that relationship. Pt reports feeling frustrated because pt feels they are making a lot of effort to change their behaviors (less isolation) and be more connected to their , but their told them yesterday that he has not noticed anything. Pt reported they know personally that they have made changes and pt shared my has a hard time seeing things differently when he feels a certain way. Pt reported benefitting from reminding themselves of the changes they have made and allowing self to process frustration. Pt receptive to ideas on how to continue working on their goal of connection with their while also asking him to be more accountable. Pt plans to use the idea of nightly check-ins with their to help pt and their pay attention to what went well and what they need to work on. Pt also reminded themselves that they are not responsible for their 's emotional regulation. Risks/Concerns:: Pt denies any active SI, plan, or intent as of 04/15/24 Progress Toward Goals/Plan:: Pt recently discharged from [facility] and began IOP tx. Pt has made progress in the program AEB their application of coping skills and report of reduced isolation and SI. Pt's symptoms of depression and anxiety are improving, but still impacting their daily functioning. Pt's stressors are also ongoing, but pt reports increasing ability to manage these stressors compared to the past. Pt will continue IOP tx to prevent decompensation, improve distress tolerance, and improve daily functioning. Time Stopped:: 12:15
--- NOTE | 2024-04-16 09:00 | BH.SGPN.GN ---
Behaviors/Verbalizations/Mental Status: [] Client alert and oriented, casual appearance. Eye contact good. Motor activity appropriate. Speech within normal limits. Affect congruent, mood euthymic. Thoughts linear, logical, no signs of hallucinations or delusions. Reviewed client's symptom tracker, no risk for suicidal ideation, plan, or intent. Client Response/Progress/Benefit: [] Client responded well to session AEB listening to others and sharing thoughts/feelings. Client reported mental health positive as reconnecting with by being more intentional throughout the day to reach out to him. Client stated additional mental health positive is client's mom will be visiting soon and is excited to spend time together. Client reported they are also excited because plan to go back to [place] with their mom to spend time together. Client reported current stressor is physical health. Appeared to benefit from support from peers. Will continue IOP tx to improve distress tolerance, increase healthy coping skills, and prevent decompensation.
--- NOTE | 2024-04-16 10:10 | BH.SGPN.GN ---
Behaviors/Verbalizations/Mental Status: []Pt alert and oriented, casually dressed and groomed. Eye contact good. Motor activity appropriate. Speech within normal limits. Affect congruent, mood anxious. Thoughts linear, logical, no signs of hallucinations or delusions. ? Client Response/Progress/Benefit: []Pt responded well to session, attentive and engaged. Pt participated in activity where pts had to guess the celebrity with a known mental health diagnosis and this led to discussion on self-stigma. Group participated in the discussion defining stigma as well as what stigma has kept pt's from doing in their lives. Pt stated mental health stigma has led pt to shutting down or avoiding those who pt did not believe would understand, ultimately limiting support network. Pt worked with peers to begin discussion of what reinforces stigma and this was discussed further in the next group. Pt appeared to benefit from learning about the different types of stigma as well as gaining awareness of how stigma as personally impacted pt. Pt will continue in IOP tx to promote mood stability, improve confidence, and prevent decompensation. Narrative Note: []
--- NOTE | 2024-04-16 11:10 | BH.SGPN.GN ---
Behaviors/Verbalizations/Mental Status: []Pt alert and oriented, neatly dressed and groomed. Eye contact good. Motor activity appropriate. Speech within normal limits. Affect congruent, mood euthymic. Thoughts linear, logical, no signs of hallucinations or delusions. Client Response/Progress/Benefit: [] Pt engaged participant AEB participating in the activity, providing input during small group discussion, and listening attentively to others. Pt appeared to connect with discussion in the benefits of addressing mental health stigma which included: improved relationships, increased willingness to seek help, increased happiness, and improved confidence. Group brainstormed strategies to combat social and perceived stigma. Pt identified that they can contribute to stigma by shutting down and avoiding.?Pt shared one thing pt can do to combat stigma is ?reaching out more to my supports.? Appeared to benefit from increasing awareness of strategies to combat stigma. Will continue IOP tx to prevent decompensation, improve distress tolerance skills, and improve mood stability. Narrative Note: []
--- NOTE | 2024-04-16 14:07 | BH.MDN_ITS ---
Multi-Disciplinary Note Note 30-min Individual: Time Started:: 12:12 Date: 04/16/24 Purpose of session/treatment goals addressed:: To work on goal #2 of pt's tx plan. Eye Contact:: Good Motor Activity:: Appropriate Appearance:: Neat Speech:: Appropriate Mood:: Euthymic Affect:: Full Thoughts:: Linear, Logical and No evidence of hallucinations/delusions noted Staff Interventions:: thought challenging, CBT techniques, strengths perspective, goal setting and other (Discussed writing a letter to self with coping skills to use when pt struggles.) Client Response:: Pt responded well to session, open to meeting with therapist. Pt reports not much has changed since yesterday, but pt is proud of themselves for having difficult conversations instead of avoiding them. Pt also followed through with creating the tasks chart based on energy levels which pt feels will help their relationship with their . Pt's stated they are doing well and want to keep it that way, but pt has struggled with maintenance in the past. Pt shared they have a hard time catching warning signs and knowing what I need and what skills to use. Pt receptive to reviewed some of their warning signs which included increased isolation, lack of communication with t heir partners, and urges to escape. Pt also receptive to writing a letter to self since pt has gotten back into writing. The letter would include ideas for coping when pt gets stuck in the future or begins to see a setback. Pt plans to work on this over the weekend. Risks/Concerns:: Pt denies any active SI, plan, or intent. Progress Toward Goals/Plan:: Pt began IOP tx this week and has been doing well adjusting to less tx days. Pt has made progress in the program AEB their application of coping skills and report of reduced isolation and SI. Pt reports being able to be alone now which is significant as pt had not been able to be alone after their hospitalizations. Pt's symptoms of depression and anxiety are improving, but still impacting their daily functioning. Pt's stressors are also ongoing, but pt reports increasing ability to manage these stressors compared to the past. Pt will continue IOP tx to prevent decompensation, improve distress tolerance, and improve daily functioning. Time Stopped:: 12:33
--- NOTE | 2024-04-19 09:05 | BH.SGPN.GN ---
Behaviors/Verbalizations/Mental Status: [] Client alert and oriented, casually dressed and groomed. Eye contact good. Motor activity appropriate. Speech within normal limits. Affect congruent, mood euthymic. Thoughts linear, logical, no signs of hallucinations or delusions. Reviewed client?s symptom tracker, no risk for suicidal ideation, plan, or intent as of 04/19/24. Client Response/Progress/Benefit: [] Client responded well to session, offering ideas to peers and providing encouragement. Client reports feeling retrospective this and doing well. Client states they have multiple financial stressors currently that are going on, especially medical. Client identified they are coping my putting things in to perspective and using logic to help process through it. Client overall indicated they are doing well and able to use skills application from IOP. Client appeared to benefit from reflecting on their growth. Client will continue IOP tx as client continues to struggle with anxiety. Narrative Note: []
--- NOTE | 2024-04-21 11:07 | BH.COMM ---
Communication Note Communication with Client Communication Note: Pt had to cancel this week due to having COVID. Pt plans to return next week should their symptoms reduce.
--- NOTE | 2024-04-29 09:05 | BH.SGPN.GN ---
Behaviors/Verbalizations/Mental Status: [] Eye contact is good. Motor activity is appropriate. Appearance is casual. Speech is Appropriate. Mood is depressed/irritable. Affect is congruent. Thoughts are linear and logical. No evidence of psychosis. Reviewed daily check in sheet and no reports of suicidal ideations or intent. Client Response/Progress/Benefit: [] Pt participated at times. Attentive. Apologized to the group for being ?gone for a while?. She mentioned medical issues, psychosocial stressors, and ?going back to old habits?. Feels overwhelmed and admits it was difficult to ?come back?. Elaborated in more detail regarding her stressors and current functioning. Concerned she is going to decompensate due to recent stressors and her struggles to manage. She is proud of herself for not relapsing on alcohol. Benefited from group support, encouragement, and feedback. Will continue in IOP to maintain safety, prevent decompensation/re-admission, and to improve functioning. Narrative Note: []
--- NOTE | 2024-04-29 10:15 | BH.SGPN.GN ---
Behaviors/Verbalizations/Mental Status: []Client alert and oriented, casually dressed and groomed. Eye contact fair. Motor activity appropriate. Speech within normal limits. Affect constricted, mood anxious. Thoughts linear, logical, no signs of hallucinations or delusions. Client Response/Progress/Benefit: []Pt engaged in session AEB listening attentively to others and providing input throughout. Pt engaged in activity, able to connect how it can be uncomfortable and difficult to accept when things are out of one?s own control. Pt worked with group to identify what things in life can be hard to accept. Group identified things hard to accept as: change, loss, mental health diagnosis, other?s behaviors, and failure. Pt identified struggling to accept their physical health issues. Seemed to benefit from increased awareness of the importance of acceptance. Pt to continue in IOP tx to improve distress tolerance, challenge distortions, and prevent decompensation.
--- NOTE | 2024-04-29 13:51 | BH.MDN_ITS ---
Multi-Disciplinary Note Note 45-min Individual: Time Started:: 11:25 Date: 04/29/24 Purpose of session/treatment goals addressed:: To process current triggers and implement healthy coping skills. Another goal was to combat distortions. Eye Contact:: Good Motor Activity:: Appropriate Appearance:: Neat Speech:: Soft Mood:: Anxious and Depressed Affect:: Flat Thoughts:: Linear, Logical and No evidence of hallucinations/delusions noted Staff Interventions:: thought challenging, CBT techniques, mindfulness skills (reviewed grounding skills pt can use when they shut down and dissociate. ), strengths perspective and goal setting Client Response:: Pt responded well to session, open to meeting with therapist. Pt reports feeling very anxious, overwhelmed, and depressed today. Pt shared they have had so many stressors happen all at once and I wish this was unique, but that feels like my life. Pt reported they have had so many hardships, stressors, and difficulties in their life that it is hard to believe that the world could offer pt respite and relief. Pt appeared to benefit from emotional validation from therapist as well as the discussion of C-PTSD and how this impacts a person's beliefs and outlook on the world. Pt did well to be open-minded to challenging their perspective and looking at what pt can do to manage these emotions and stressors. Pt asked what they could do in the moment to manage anxiety because pt shared yesterday they completing lost it which pt described as dissociating, freezing, and shutting down. Pt also had racing thoughts and felt like I could hit my head through a wall. Pt receptive to discussion on grounding and pt came up with some grounding skills they could use such as having their say something funny and carrying a grounding stone. Also discussed different ways pt can approach some of these stressors so things do not pile up so much in the future. Pt feels they could have more talks with their partners and do more delegating so pt does not feel like the one responsible for all the stressors. Pt also reported they would benefit from making a list of things pt can do more proactively as procrastination often leads to more consequences and stress for pt. Pt was still anxious when they left session, but they reported feeling less helpless and more encouraged. Risks/Concerns:: Pt admits to having thoughts of , but denies any active SI today. Pt reports this is caused by feeling highly overwhelmed by pt's current stressors. Pt had urges to drink last night, but did not. Progress Toward Goals/Plan:: Overall pt has been demonstrating progress towards their tx goals, but pt reports worsened mood today due to numerous external stressors happening all at once. Additionally, pt had COVID last week and missed IOP so pt had less structure and support which pt reported contributed to increased depression and anxiety. Pt shared today their symptoms of anxiety have led to pt shutting down yesterday and not functioning for the rest of the day. Pt was receptive to skills in session and left in a better mental state per their report. Pt will continue IOP tx to prevent any decompens ation, improve self-care, and increase distress tolerance. Time Stopped:: 12:05
--- NOTE | 2024-04-30 09:00 | BH.SGPN.GN ---
Behaviors/Verbalizations/Mental Status: []Eye contact is good. Motor activity is appropriate. Appearance is casual. Speech is Appropriate. Mood is confident and stressed. Affect is congruent. Thoughts are linear and logical. No evidence of psychosis. Reviewed daily check in sheet and no reports of suicidal ideations or intent. Client Response/Progress/Benefit: []Pt responded well to session, attentive and engaged. Pt reports feeling stressed but less than yesterday this morning. Pt identified mental health wins today which included having a good discussion with their , which he initiated and pt practicing a lot of self-care yesterday to manage anxiety. Pt's stressor this morning is that their has been struggling mentally since getting hurt at work and not being able to provide for their family. Pt receptive to feedback from peers on how to set boundaries and be supportive. Pt appeared to benefit from reflecting on use of coping skills and connecting with peers. Pt will continue IOP tx to promote gains, improve daily functioning, and increase self-confidence. Narrative Note: []
--- NOTE | 2024-04-30 10:15 | BH.SGPN.GN ---
Behaviors/Verbalizations/Mental Status: [] Eye contact is good. Motor activity is appropriate. Appearance is casual. Speech is Appropriate. Mood is euthymic. Affect is full. Thoughts are linear and logical. No evidence of psychosis. Client Response/Progress/Benefit: [] Pt was engaged and an active participant throughout, providing input and taking notes. Participated throughout interactive discussion on defining anxiety and identifying cognitive and physiological symptoms of anxiety. Group discussed the role of anxiety on isolation, avoidance, and who this emotion impacts their ability to start and complete activities/goals. Pt identified their physical/physiological signs of anxiety (i.e. nausea, increased heart rate, butterflies, and headaches). Pt identified safety behaviors (i,e isolation, cancel plans, and reassurance seeking). Benefited from increased awareness and insight on anxiety and its impact. Will continue in IOP to maintain safety, prevent decompensation, and increase functioning. Narrative Note: []
--- NOTE | 2024-04-30 11:15 | BH.SGPN.GN ---
Behaviors/Verbalizations/Mental Status: []Pt alert and oriented, casually dressed and groomed. Eye contact fair. Motor activity appropriate. Speech within normal limits. Affect constricted, mood anxious. Thoughts linear, logical, no signs of hallucinations or delusions. Client Response/Progress/Benefit: []Pt was an active participant AEB pt providing input and listening attentively to peers. Attentive during psychoeducation on mindfulness coping skills and their impact on reducing anxiety and improving overall mental health wellness. Group was able to identify self-soothing and mind-based coping skills which included: 5-senses, meditation, deep breathing, TIPP, thought challenging, and progressive muscle relaxation. Pt also participated with peers in practicing mindfulness skills in session including deep breathing and PMR. Pt would like to work on progressive muscle relaxation and using temperature change to manage anxiety. Appeared to benefit from increasing repertoire of anxiety reduction skills. Pt will continue in [facility] tx to improve emotional regulation, increase self-care practices, and challenge distorted and negative thought patterns.
--- NOTE | 2024-05-04 09:05 | BH.SGPN.GN ---
Behaviors/Verbalizations/Mental Status: [] Eye contact is good. Motor activity is appropriate. Appearance is casual. Speech is Appropriate. Mood is euthymic. Affect is full. Thoughts are linear and logical. No evidence of psychosis. Reviewed daily check in sheet and no reports of suicidal ideations or intent. Client Response/Progress/Benefit: [] Pt was an active participant in group discussions. Provided feedback on short video on Empathy vs Sympathy. Daily symptom tracker notes 5 for depression and 5 for anxiety. Able to identify mental health progress and healthy habits. I had a good day yesterday. Able to reframe and challenge perspective on tasks she had to complete which improved engagement and overall mental health. Also reports that she started a gratitude journal in which she and her roommates get together at the end of the day and write things they are grateful for in the journal. Elaborated on how this is helpful for her mental health. Continues to have psychosocial stressors ('s injury, finances, etc) which impacts her overall stress. She is planning on looking for part-time work to help with bills. She has not worked in several months due to mental health struggles hwoever reports feeling ready. Progress noted. Benefited from group support, encouragement, and feedback. Will continue in IOP to maintain safety, prevent decompensation/re-admission to psych unit, and to increase healthy coping skills. Narrative Note: []
--- NOTE | 2024-05-04 10:15 | BH.SGPN.GN ---
Behaviors/Verbalizations/Mental Status: []Eye contact is good. Motor activity is appropriate. Appearance is casual. Speech is Appropriate. Mood is agitated, content. Affect is congruent. Thoughts are linear and logical. No evidence of psychosis. Client Response/Progress/Benefit: [] Attentive and engaged throughout the group discussions. Attentive during psychoeducation on the 4 communication styles (Passive, Passive-Aggressive, Aggressive, and Assertive) and the obstacles to effective communication. Attentive during interactive discussion on the benefits of communicating effectively, as well as the benefits and disadvantages to the different communication styles. Reports connecting most with the passive-aggressive style at present, providing examples of communicating with behaviors or through sarcasm. Benefited from increased understanding of communication styles and how these can impact effective communication. Will continue in IOP to maintain mood stability and prevent decompensation. Narrative Note: []
--- NOTE | 2024-05-04 11:10 | BH.SGPN.GN ---
Behaviors/Verbalizations/Mental Status: []Pt alert and oriented, casually dressed. Eye contact fair. Motor activity appropriate. Speech within normal limits. Affect constricted, mood anxious. Thoughts linear, logical, no signs of hallucinations or delusions. Client Response/Progress/Benefit: [] Pt responded well to session AEB Pt listening attentively to others and providing input during group discussion on the pay offs and costs of the different communication styles. Pt able to connect how current communication style impacts mental health. Connected with peers? comments about importance of using assertive communication. Pt did well with practicing being assertive in the group activity and worked with group to identify potential skills for improving communication skills. Pt seemed to benefit from increasing awareness of healthy strategies to improve communication. Will continue IOP tx to prevent decompensation, continue use of healthy coping skills, and build confidence.
--- NOTE | 2024-05-05 10:10 | BH.SGPN.GN ---
Behaviors/Verbalizations/Mental Status: []Pt alert and oriented, casually dressed and groomed. Eye contact good. Motor activity appropriate. Speech within normal limits. Affect congruent, mood calm. Thoughts linear, logical, no signs of hallucinations or delusions. Client Response/Progress/Benefit: [] Pt was attentive during psychoeducation and participated in group activity. Group discussed what contributes to a person?s perspective and how perspective can positively or negatively impact mental health treatment. Pt reflected on their perspective today and how it is impacting them. Pt shared their perspective today is ?hopeful and optimistic which it was not at all when I first started IOP.? Pt shared this increases pt?s motivation and provides pt with evidence that things can change. Pt appeared to benefit from increasing awareness of different perspectives and how they can affect mental health. Pt will continue IOP tx to promote mood stability, increase distress tolerance skills, and increase confidence in pt?s ability to maintain skills. ?? Narrative Note: []
--- NOTE | 2024-05-05 10:27 | BH.MDN_ITS ---
Multi-Disciplinary Note Note 30-min Individual: Time Started:: 09:25 Date: 05/05/24 Purpose of session/treatment goals addressed:: To process current stressors, progress, and plan for aftercare. Another goal was to begin ma intenance plan. Eye Contact:: Good Motor Activity:: Appropriate Appearance:: Neat Speech:: Appropriate Mood:: Euthymic and Anxious Affect:: Full Thoughts:: Linear, Logical and No evidence of hallucinations/delusions noted Staff Interventions:: thought challenging, CBT techniques, discharge planning, strengths perspective, taught coping skills and other (gave pt a maintenance plan to begin working on for homework. ) Client Response:: Pt responded well to session, open to meeting with therapist. Pt reports feeling better today and doing better at home. Pt reports having days/moments where pt does not feel great but pt reports they are actively applying healthy coping skills. Pt has been using a lot of assertive communication to help get their needs met and their perspective heard. Pt also has been doing well with challenging their perspective when pt has down days. Pt recognizes they can continue to benefit from challenging their perspective, giving themselves credit, and sticking with a routine. Pt engaging in old hobbies has also been helpful in improving pt's mood. Pt's stressors outside of IOP are ongoing and include; financial stress, relationship discord at times, and health of supports. Pt admits there are times when they get very overwhelmed and then shut down, but overall pt has been working on talking through stressors more and working with their partners to problem-solve more than before. Pt receptive to talking about discharge and preparing for this by setting up counseling and creating a maintenance plan. Risks/Concerns:: Pt denies any suicidal ideations, plan, or intent. Pt also denies thoughts of . Progress Toward Goals/Plan:: Pt continues to make progress towards their tx goals AEB pt's continues to utilize coping skills outside of IOP and reports more consistent days where pt is functioning well and feeling better. Pt also reports increased communication with supports and more resilience. Pt's symptoms are ongoing, but decreasing. Pt reports days where pt feels more down and not motivated. Pt also has moments of feeling very overwhelmed, but they are getting better at utilizing skills to prevent decompensation. Aftercare plan is to taper pt's days as pt gets ready to discharge from IOP in a few weeks. Pt's outpatient therapist may not accept pt's insurance now, so pt would also like support while pt looks for a new provider. Pt will continue IOP tx to promote mood stability, increase distress tolerance, and further improve daily functioning. Time Stopped:: 10:00
--- NOTE | 2024-05-05 10:34 | BH.TPR ---
Treatment Plan Review Demographics Date of Admission:: 04/13/24 Date of Treatment Plan Review:: 05/05/24 Admitting Diagnoses:: Major depressive disorder, recurrent, severe without psychosis F 33.2; PTSD; Borderline personality disorder; Nonepileptic seizures, cannot rule out epileptic seizures; History of bulimia with purging by laxative and vomiting Current Diagnoses:: Major depressive disorder, recurrent, severe without psychosis F 33.2; PTSD; Borderline personality disorder; Nonepileptic seizures, cannot rule out epileptic seizures; History of bulimia with purging by laxative and vomiting Patient Status Patient's Response to Treatment:: Pt has responded well to session AEB consistently attending IOP and engaging in both individual and group therapy sessions. Pt successfully completed PHP and reported it was beneficial. Pt consistently completes homework provided from individual counseling. Pt contributes at times during group discussions, takes notes, appears to listen to others, and engages in group activities. Pt's overall DSM-5 scores have decreased by 29% since admission and pt reports consistently applying coping skills. Status of Current Problems and Symptoms: Pt continues to report symptoms of anxiety that impact pt's functioning and overall mood most days. Pt also endorses depressive episodes, but they are decreasing in intensity and frequency. Pt's financial situation, home stressors, and health are pt's biggest stressors currently. Progress Problem #1: Problem Name:: Depression, worthlessness, isolation, and SI Status of Goals:: Objective 1- complete with ongoing work encouraged. Pt?s scores decreased by29% since admission with SI decreasing by 67%. Pt reports using opposite action, thought challenging, and getting into a routine at home. Objective 2- in progress. Pt is working on incorporating healthier coping mechanisms when pt wants to isolate, drink, or self-sabotage. Pt reports their relationships are improving because of this as well. Team Recommendations:: Team recommends continued goals and objectives to reinforce skills and reduce symptoms. Team recommends pt continue working on combating distortions, being more self-compassionate, and communicating openly with closest supports. Problem #2: Problem Name:: Anxiety, panic, and ruminations Status of Goals:: Objective 1- in progress. Pt is working on increasing distress tolerance skills by using assertive communication, trying to practice more self-care, and through deep breathing strategies. Objective 2- in progress. Pt?s scores for anxiety have not yet decreased, but they have not worsened since admission. Pt reports utilizing grounding skills and practicing affirmations at work. Team Recommendations:: Treatment team encourages pt to continue working on distress tolerance skills and practicing self-care to reduce stress. Pt also encouraged to continue engaging in hobbies and scheduling time with supports.
--- NOTE | 2024-05-05 11:10 | BH.SGPN.GN ---
Behaviors/Verbalizations/Mental Status: []Pt alert and oriented, casually dressed and groomed. Eye contact good. Motor activity appropriate. Speech within normal limits. Affect congruent, mood content. Thoughts linear, logical, no signs of hallucinations or delusions. Client Response/Progress/Benefit: []Pt was attentive and contributed to group discussion. Pt worked with group to identify strategies that can help with challenging negative perspective. Pt completed strengths exploration worksheet, identifying love of learning, open-mindedness, and social awareness as personal strengths. Pt able to acknowledge how these strengths are helping pt and can continue to help pt in mental health journey. Pt identified wanting to work on leaning on strength of love of learning to continue practicing distracting with healthy things before responding on initial emotion. Benefited from identifying personal strengths and strategies for enhancing use of identified strengths. Pt will continue IOP tx to maintain mood stability, encourage consistent skill aplication and prevent decompensation. Narrative Note: []
--- NOTE | 2024-05-05 11:41 | PCM.BH.PN ---
Progress Note Progress Note: History of Present Illness/Interim History: The patient is a 28-year-old female with a long history of depression, anxiety and mood changes who is seen in follow-up at the [facility] behavioral health [facility]. I last saw the patient 2 weeks ago and at that time no medication changes were made. The patient feels that she is learning from the IOP valuable skills that can help deal with her mental health issues. She has been trying to use these lately as she has been dealing with a lot of financial stress recently as her had to have surgery from a work injury and she is also having car issues which has made this whole situation more stressful. She feels she has been handling the stress much better than she used to. She has not had any seizures or pseudoseizures but did have an aura 1 week ago. Her mood is less depressed also. She denies any purging. She denies passive thoughts of for the most part and states that now she only has them when she is severely anxious which is like once every 2 weeks. She denies any thoughts of self-harm, suicidal ideation, plan for suicide, homicidal ideation, hallucinations, delusions or symptoms of sanaz ever. Sleep is improved to 8 hours a night instead of 11 hours which she was sleeping before. Current Psychiatric Medications: [] Abilify 15 mg p.o. daily; Lamictal 50 mg p.o. twice daily; trazodone 50 mg at bedtime as needed; Prozac 60 mg p.o. daily; Topamax 100 mg p.o. twice daily for seizures. Mental Status Examination: [] Patient is an obese, female who is seen wearing glasses and has piercings in her nose and lip and numerous bilateral tattoos on her arms. She is ambulatory with a normal gait and is not using a cane today due to her balance issues. She is casually dressed and groomed with good hygiene and appears an otherwise normal for stated age. She is cooperative during the interview and has no psychomotor agitation or retardation. Eye contact is good and speech is normal rate and rhythm and fluent with no pressure. Affect is full and normal. Thought process is goal-directed and organized. Thought content: There is no evidence of passive thoughts of , suicidal ideation, thoughts of self-harm, homicidal ideation, hallucinations or delusions. Reality testing is intact. Judgment is intact. Insight is fair and improving. Impulsivity is moderate. Diagnoses: [] 1. Major depressive disorder, recurrent, severe without psychosis 2. PTSD 3. Borderline personality disorder 4. Nonepileptic seizures, cannot rule out epileptic seizures 5. History of bulimia with purging by laxatives and emesis 6. Chronic pain and balance issues Plan: [] The patient will continue the IOP at [facility] as the structure, support, education, and group therapy will hopefully prevent worsening of the patient's symptoms which could require rehospitalization. She felt safe during the interview and if it anytime she does not feel safe she agrees to let us know or go to the emergency room. No medication changes were made today but a refill was given for the patient's Topamax that she has been having difficulty getting a refill. She will continue to follow-up with her outpatient providers and I will see the patient in follow-up while she is in the IOP.
--- NOTE | 2024-05-07 09:00 | BH.SGPN.GN ---
Behaviors/Verbalizations/Mental Status: [] Eye contact is good. Motor activity is appropriate. Appearance is casual. Speech is Appropriate. Mood is euthymic. Affect is full. Thoughts are linear and logical. No evidence of psychosis. Reviewed daily check in sheet and no reports of suicidal ideations or intent. Client Response/Progress/Benefit: [] Pt was an active participant in group discussions. Attentive. Pt states I'm feeling better mentally and physically. According to pt she is more engaged and active in her daily life. Commented that she is beginning to see that her mental health contributes to her physical health as well. Notes that since mental health improve she has had less pain and has not had to use her cane. Feeling hopeful about the future. 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 Increased confidence in her ability to manage her emotions. Stability despite continued psychosocial stressors. Utilizing skills. Will continue in IOP to maintain gains, prevent decompensation/re-admission, and to improve functioning. Narrative Note: []
--- NOTE | 2024-05-07 10:10 | BH.SGPN.GN ---
Behaviors/Verbalizations/Mental Status: []Pt alert and oriented, casually dressed and groomed. Eye contact good. Motor activity appropriate. Speech within normal limits. Affect congruent, mood euthymic. Thoughts linear, logical, no signs of hallucinations or delusions. Client Response/Progress/Benefit: [] Pt responded well to session, contributing to discussion, and engaged during the activity. Group identified the benefits of change which included: increased confidence, improving mental health, and personal growth. Worked with the group to identify barriers to change, which included: uncomfortable emotions such as anxiety and fear, lack of awareness of how to make changes, worried about what others will think, and fear of the unknown. Pt participated along with group in activity where they identified and discussed the emotions related to change. Pt connected with peers that one can have many conflicting emotions when faced with change and shared struggling with fear of failure leading to not following through with changes they have wanted to make in the past. Benefited from increased awareness and understanding of emotions, benefits, and barriers related to change. Will continue IOP tx to maintain mood stability and prevent decompensation. Narrative Note: []
--- NOTE | 2024-05-07 11:10 | BH.SGPN.GN ---
Behaviors/Verbalizations/Mental Status: []Client alert and oriented, casually dressed and groomed. Eye contact good. Motor activity appropriate. Speech within normal limits. Affect congruent, mood euthymic. Thoughts linear, logical, no signs of hallucinations or delusions. Client Response/Progress/Benefit: [] Pt responded well to session, attentive throughout. Did well to actively listen and contributed when prompted as group worked to process activity. Pt worked with group to relate the strategies used to overcome barriers in the activity to managing change in own life. Pt identified a change they would like to make is building more of a support network. Pt identified currently being in the action stage for this change. Pt said reaching out more, validating self, and using opposite action can help pt get to the next stage. Appeared to benefit from identifying a change they want and how to progress. Pt will continue IOP tx to promote mood stability, increase distress tolerance, and further improve self-compassion. Narrative Note: []
== END 2024-05-08 23:59 ==
LOC: BHIOP 08:00
PROVIDERS: PCP Internal Medicine; Referring Provider Psychiatry & Neurology Psychiatry; Visit Provider Psychiatry & Neurology Psychiatry
DX: F33.2 Major depressive disorder, recurrent severe without psychotic features (principal); F43.10 Post-traumatic stress disorder, unspecified; F60.3 Borderline personality disorder; G40.909 Epilepsy, unspecified, not intractable, without status epilepticus; F50.2 Bulimia nervosa; Z79.899 Other long term (current) drug therapy
CPT/HCPCS: S9480; 90832; 90834; 90853

== ENCOUNTER 2024-05-11 07:08 | Outpatient (RCR) | payer OTHER, SELFPAY ==
--- NOTE | 2024-05-12 09:00 | BH.SGPN.GN ---
Behaviors/Verbalizations/Mental Status: [] Pt alert and oriented, neatly dressed and groomed. Eye contact good. Motor activity appropriate. Speech within normal limits. Affect congruent, mood dysthymic. Thoughts linear, logical, no signs of hallucinations or delusions. Reviewed pt?s symptom tracker, no risk for suicidal ideation, plan, or intent 05/12/24 Client Response/Progress/Benefit: []Pt responded well to session, attentive and engaged. Pt reports feeling blah this morning. 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 Pt's stressor today is that there have been a lot of stressors lately and I'm over-thinking stupid things. Pt appeared to benefit from connecting with peers and gaining feedback. Pt will continue IOP tx to promote mood stability, increase self-compassion, and reinforce healthy coping skills. Narrative Note: []
--- NOTE | 2024-05-12 10:10 | BH.SGPN.GN ---
Behaviors/Verbalizations/Mental Status: [] Eye contact is good. Motor activity is appropriate. Appearance is casual. Speech is Appropriate. Mood is anxious. Affect is congruent. Thoughts are linear and logical. No evidence of psychosis. Client Response/Progress/Benefit: [] Pt was an engaged participant AEB listening attentively to others, taking notes, and providing feedback in small group discussions. Attentive during psychoeducation AEB by note taking and providing some input. Pt worked along with peers in small groups to define inappropriate guilt and appropriate guilt. Interactive discussion on examples of both inappropriate and appropriate guilt. Worked well in small group with peers where they identified example of inappropriate vs appropriate guilt and the impact inappropriate guilt can have on MH. Benefited from increased awareness of guilt and the differences between appropriate and inappropriate guilt. Plan is to continue in IOP to prevent decompensation/re-admission to psych unit, increase healthy coping, and improve functioning. Narrative Note: []
--- NOTE | 2024-05-12 11:10 | BH.SGPN.GN ---
Behaviors/Verbalizations/Mental Status: []Pt alert and oriented, casually dressed and groomed. Eye contact good. Motor activity appropriate. Speech within normal limits. Affect congruent, mood content. Thoughts linear, logical, no signs of hallucinations or delusions. Client Response/Progress/Benefit: []Pt engaged participant AEB listening attentively to others and providing input throughout group. Pt worked within their small group to identify strategies to manage inappropriate guilt. Identified a personal example of inappropriate guilt as ?running out of money due to subscriptions?. Provided insight that this cues a feeling of ?being responsible for the entire family's finances? Pt wants to work on combatting inappropriate guilt by correcting the distortions and practicing better acknowledging the problem with supports with supports. Pt seemed to benefit from learning about strategies to manage appropriate and inappropriate guilt. Pt to continue IOP level of care to continue to prevent decompensation, and promote mood stability. ? Narrative Note: []
--- NOTE | 2024-05-14 09:00 | BH.SGPN.GN ---
Behaviors/Verbalizations/Mental Status: [] Eye contact good. Motor activity appropriate. Speech within normal limits. Affect congruent, mood dysthymic. Thoughts linear, logical, no signs of hallucinations or delusions. Reviewed client?s symptom tracker, pt denies SI,?plan, or intent as of 05/14/2024. Client Response/Progress/Benefit: [] Client receptive of session, attentive and willing to process with group. Identified mental health ?win as coming to group today despite feeling depleted emotionally and physically. Reports reminding herself that she often feels better after coming to group and knows that being here today will likely help improve her mood and focus on other things. Additional win is going to her first choir practice despite anxiety about doing so. Shared this went really well and she is excited to continue to be involved. Stressor noted as her mood being lower today. Did well to practice self-compassion and remind herself that there are several things she can do to improve her mood and she doesn't have to be positive all the time. Receptive of and appearing to benefit from group feedback and suggestions. Recommended continued IOP tx to maintain mood stability, promote consistent skill application, well as prevent decompensation. Narrative Note: []
--- NOTE | 2024-05-14 10:10 | BH.SGPN.GN ---
Behaviors/Verbalizations/Mental Status: []Pt alert and oriented, neatly dressed and groomed. Eye contact good. Motor activity appropriate. Speech within normal limits. Affect congruent, mood content. Thoughts linear, logical, no signs of hallucinations or delusions Client Response/Progress/Benefit: [] Pt was an active participant during interactive group discussions. Attentive during psychoeducation. Along with peers contributed to interactive discussion on defining what a boundary is in mental health. Pt along with peers identified challenges to setting boundaries which included; fear of other's response, wanting to people please, fear of rejection, losing relationships, etc. Pt along with peers identified the benefits to setting boundaries such as better mental health, strengthen relationships, increased time for self-care, and increased confidence. Pt able to reflect on setting boundaries with self has helped pt maintain sobriety. Pt benefited from increased awareness and insight on the importance/benefit to setting health boundaries. Will continue in IOP to promote mood stability, increase distress tolerance, and improve daily functioning. Narrative Note: []
--- NOTE | 2024-05-14 15:24 | BH.MDN ---
Multi-Disciplinary Note Note 45-min Individual: Time Started:: 11:15 Date: 05/14/24 Purpose of session/treatment goals addressed:: To work on goal #1 of pt's tx plan. Another goal was to practice thought challenging. Eye Contact:: Good Motor Activity:: Appropriate Appearance:: Neat Speech:: Soft Mood:: Depressed Affect:: Flat Thoughts:: Other (ruminating but able to combat thoughts) and No evidence of hallucinations/delusions noted Staff Interventions:: thought challenging, CBT techniques, mindfulness skills, strengths perspective, goal setting and taught coping skills Client Response:: Pt responded well to session, reports feeling low and down today. Pt shared they have noticed an increased urge to isolate, shut down, and avoid. Pt recognizes that when they get in this headspace, they become cynical and pessimistic. Pt was judgmental of themselves and stated they are not being appreciative to their supports and they feel like a bad partner to their partners. Pt shared they are starting to think what's the point which is the same mindset pt had when they first started PHP. However, this time pt is much quicker to challenge their distortions and remind themselves that this wave of distress will pass. Pt able to utilize dialectical thinking which helped pt remind themselves of the progress they have made despite their current mood. Pt also gained insight that their mood may be more down because pt has not had much alone time which pt reports they need in order to recharge their battery. Pt knows that when they do not get time to recharge, their distress tolerance is low and it leads to being overwhelmed more quickly and urges to engage in unhealthy coping. We discussed what would allow pt to recharge their battery such as getting back to a routine at home, talking with their about having some alone time, and potentially spending some time outside the house before they get home from [facility] so they feel more regulated. Risks/Concerns:: Pt reports feeling low like I did before I was hospitalized but pt denies having active SI. Pt had urges to drink, but pt did not. Pt continues to follow their safety plan of no alcohol at home and pt communicates with supports. Progress Toward Goals/Plan:: Pt reports regression in mood today as pt reports feeling depressed, unmotivated, and down. After discussion, pt able to see that one of the triggers for their worsening mood is not having much personal/alone time lately because their is off of work due to injury. Pt receptive to thought challenging in session as well as creating a plan for the weekend. Pt has not heard back from their outpatient therapist about getting scheduled for after IOP. Pt will continue IOP tx to promote mood stability, prevent further decompensation when experiencing stressors, and to increase self-compassion. Time Stopped:: 12:00
--- NOTE | 2024-05-18 11:16 | BH.MDN_ITS ---
Multi-Disciplinary Note Note 30-min Individual: Time Started:: 09:30 Date: 05/18/24 Purpose of session/treatment goals addressed:: To process current stressors, symptoms, and application of coping skills. Another goal was to help pt cope while she was not physically feeling well. Eye Contact:: Good and Poor (poor later on when pt was having some physical symptoms. ) Motor Activity:: Appropriate Appearance:: Neat Speech:: Appropriate and Soft Mood:: Euthymic and Other (uncomfortable while having physical/medical symptoms.) Affect:: Congruent Thoughts:: Linear, Logical and No evidence of hallucinations/delusions noted Staff Interventions:: thought challenging, CBT techniques, mindfulness skills, strengths perspective and other (helped pt feel comfortable and reviewed what pt needs when experiencing symptoms that can trigger pseudo-seizures. ) Client Response:: Pt responded well to session, open to meeting with therapist. Last week pt was reporting feeling down, but pt shared they did well to use skills which helped pt have a better weekend. Pt spent time with their partners over the weekend doing some self-care things and pt got some alone time. Pt recognized that their mental health is significantly impacted when pt does not get time to charge my battery and to do this pt finds alone time most helpful. Pt needing alone time has been a consistent issue, however, between pt and their . Pt stated they got into an argument with their this weekend because he was pouting per pt's report. Pt reported their stated we don't do things together but pt shared this is not true. Pt feels that there is not much more they can do to verbalize their boundary. Pt shared they had a talk with their and although it did not go as well as pt hoped, pt continues to reinforce their boundary and remind themselves that they are not responsible for other people's emotions. Pt is working on sitting with the uncomfortable of not fixing their 's emotions when he becomes sad or jealous. Pt also plans to have a conversation with him about expectations for what quality time is. Risks/Concerns:: Pt denies any SI, plan, or intent. Half way into the session pt began not feeling well and pt shared they felt worried they may have a pseudo-seizure. Pt called their partners so they could come get pt and take pt home. Pt laid down on the couch which seemed to help. Progress Toward Goals/Plan:: Pt continues to make progress towards their tx goals AEB pt's increased resilience when pt experiences low moments and physical symptoms. Pt has not had a pseudo-seizure in a while so pt was self- critical, but receptive to self-compassion. Pt's overall health symptoms have been better as pt has gained more awareness that they are connected to pt's mental health. Pt reports actively applying healthy coping skills outside of IOP and reports plan to rest when pt gets home to help pt bounce back from their physical symptoms. Pt will continue IOP tx to promote mood stability, increase self-compassion, and reinforce healthy coping skills. Time Stopped:: 10:00
--- NOTE | 2024-05-21 09:00 | BH.SGPN.GN ---
Behaviors/Verbalizations/Mental Status: [] Eye contact is good. Motor activity is appropriate. Appearance is casual. Speech is Appropriate. Mood is euthymic. Affect is full. Thoughts are linear and logical. No evidence of psychosis. Reviewed daily check in sheet and no reports of suicidal ideations or intent. Client Response/Progress/Benefit: [] Pt was an active participant in group discussions. Attentive. Daily symptom tracker notes 09/12 for depression, anxiety, irritability, and self-harm urges. Shared with the group that she had a phone interview however was not offered the job. Usually this would have led to a spiral however it didn't. She was proud of herself for using her skills to manage thoughts. This increased her confidence and proved that she has strategies to get through disappointments. She also shared a stressors regarding her . Was able to communicate and problem-solve effectively with him. Finances continues to be significant stressor which leads to constant anxiety. Progress noted per pt report. Benefited from group support, encouragement, and feedback. Will continue in IOP to maintain safety, prevent decompensation, and to increase healthy coping. Narrative Note: []
--- NOTE | 2024-05-21 10:10 | BH.SGPN.GN ---
Behaviors/Verbalizations/Mental Status: [] Client alert and oriented, casually dressed and groomed. Eye contact good. Motor activity appropriate. Speech within normal limits. Affect congruent, mood euthymic. Thoughts linear, logical, no signs of hallucinations or delusions. Client Response/Progress/Benefit: [] Pt responded well to session AEB sharing and listening attentively to others. Group provided examples of benefits of having social support, including: validation, get assistance, and accountability. Pt discussed that friends help them gain different perspectives when having a problem. Pt also participated in group discussion regarding the barriers to accessing support including examples like: lack of trust, avoidance, and fear of vulnerability. Pt participated in experiential activity illustrating the impact communication, boundaries, and patience play in creating healthy support systems. Pt appeared to benefit from increased knowledge of the benefits of social support and greater self-awareness. Will continue IOP tx to prevent decompensation and improve overall functioning. Narrative Note: []
--- NOTE | 2024-05-21 11:10 | BH.SGPN.GN ---
Behaviors/Verbalizations/Mental Status: [] Client alert and oriented, casually dressed and groomed. Eye contact good. Motor activity appropriate. Speech within normal limits. Affect congruent, mood euthymic. Thoughts linear, logical, no signs of hallucinations or delusions. Client Response/Progress/Benefit: [] pt was an active participant throughout AEB contributing to discussion, providing personal examples, and taking notes. Pt provided input during discussion on the types of support our supports can provide. Pt able to identify current support system and barriers that get in the way of using supports. Pt reported after identifying what type of supports pt receives, pt gained awareness that pt could benefit from more social support. Pt wants to work on job hunting and being more proactive with finding friends. Pt shared this would put less pressure on current supports. Pt seemed to benefit from identifying the type of support pt needs to work on improving. Pt recommended to continue IOP tx to prevent decompensation and increase emotional regulation skills. Narrative Note: []
--- NOTE | 2024-05-24 09:00 | BH.SGPN.GN ---
Behaviors/Verbalizations/Mental Status: [] Client alert and oriented, casually dressed and groomed. Eye contact good. Motor activity appropriate. Speech within normal limits. Affect congruent, mood euthymic. Thoughts linear, logical, no signs of hallucinations or delusions. Reviewed client?s symptom tracker, no risk for suicidal ideation, plan, or intent as of 05/24/24 Client Response/Progress/Benefit: [] Client responded well to session, offering ideas to peers and providing encouragement. Client shared progress with group from almost completing IOP program. Client reports feeling hopeful and confident this morning discussing that they have started painting again. Client's shared huge win of not napping this weekend which is something they has not been able to do until now. Client achieved this by opposite action and preparing themselves. Client said they felt tired with it, but overall was a good with getting to experience more life without being in bed all day. Client also shared stressor of stepping back to let partner deal with their issues instead of always taking control. Client appeared to benefit from reflecting on their growth. Client expected to discharge from program tomorrow. Narrative Note: []
--- NOTE | 2024-05-24 10:10 | BH.SGPN.GN ---
Behaviors/Verbalizations/Mental Status: []Eye contact is good. Motor activity is appropriate. Appearance is causal. Speech is Appropriate. Mood is euthymic. Affect is congruent. Thoughts are linear and logical. No evidence of psychosis. Client Response/Progress/Benefit: [] Pt was an active participant in group discussion and experiential activity. Attentive during psychoeducation on resilience. Participated during interactive discussion with peers on the definition of resilience. Able to relate experiential activity of group juggle to topics of resilience. Group worked together to identify what can impact one's ability to be resilient which included past experiences, trauma, toxic support system, lack of resources, and current mental/physical health state. Worked well with peers in small group in which they identified factors that contribute to building resilience. Pt?s group worked on the importance of move toward goals. Benefited from increased awareness of resilience and the factors that contribute to building resilience. Will continue in IOP to promote use of healthy coping skills, challenge distortions, and prevent decompensation.
--- NOTE | 2024-05-24 11:10 | BH.SGPN.GN ---
Behaviors/Verbalizations/Mental Status: []Pt alert and oriented, neatly dressed and groomed. Eye contact good. Motor activity appropriate. Speech within normal limits. Affect congruent, mood euthymic. Thoughts linear, logical, no signs of hallucinations or delusions. Client Response/Progress/Benefit: [] Pt responded well to session AEB completing the resilience worksheet provided. Pt participated in the discussion and worked cooperatively with group to identify strategies to enhance each of the components discussed. Pt reports belief they already use resilience traits of??self-awareness and accepting that change is a part of life.? Pt stated they would like to continue to develop resilience trait of ?keeping things in perspective? as pt has been working on this during IOP and it has helped pt move past difficult moments. Pt seemed to benefit from discussing strategies for improving personal resilience and identifying resilience traits pt already possesses. Will continue IOP tx to promote gains and reinforce healthy coping skills. Narrative Note: []
--- NOTE | 2024-05-25 09:05 | BH.SGPN.GN ---
Behaviors/Verbalizations/Mental Status: [] Pt alert and oriented, neatly dressed and groomed. Eye contact good. Motor activity appropriate. Speech within normal limits. Affect congruent, mood euthymic. Thoughts linear, logical, no signs of hallucinations or delusions. Reviewed pt?s symptom tracker, no risk for suicidal ideation, plan, or intent 05/25/24 Client Response/Progress/Benefit: []Pt responded well to session, attentive and engaged. Pt shared feeling proud to be alive this morning and stated that is something I didn't think I'd ever say. Pt reflected on their time in IOP and the progress they have made over the past months. Pt stated they found IOP very helpful in helping pt get back into routines, communicating more effectively, and challenging their perspective. Pt shared they also notice that their ability to bounce back when they are having a difficult moment or strong emotion is much better. Pt is stressed about maintenance, but pt feels they will continue to use the skills. Pt appeared to benefit from reflecting on gains and connecting with peers. Pt will discharge from IOP tx today as pt has accomplished their tx goals and no longer meets criteria for IOP level of care. Narrative Note: []
--- NOTE | 2024-05-25 10:17 | BH.IGGP_ITS ---
Aftercare Plan Demographics Treatment End Date:: 05/25/24 Psychiatrist:: Shawanda Gee Psychiatrist Office #:: [phone] [facility] Therapist:: Ila Swan Therapist Phone #:: [phone] Medications Home Medications atorvastatin 20 mg tablet 20 mg PO QHS 10/21/19 fluoxetine 40 mg capsule 40 mg PO DAILY 10/21/19 pantoprazole 40 mg tablet,delayed release 40 mg PO DAILY 08/10/20 lamotrigine 100 mg tablet 100 mg PO BID #60 tabs 01/08/21 ondansetron 4 mg disintegrating tablet 4 mg PO Q8H PRN PRN Nausea #90 tabs 01/08/21 topiramate 100 mg tablet 100 mg PO BID #60 tabs 01/08/21 cholecalciferol (vitamin D3) 50 mcg (2,000 unit) capsule 50 mcg PO DAILY 11/21/23 aripiprazole 15 mg tablet (Abilify) 15 mg PO DAILY 03/31/24 fluoxetine 20 mg capsule (Prozac) 60 mg PO QDAY 03/31/24 lacosamide .ROUTE 03/31/24 lamotrigine 25 mg tablet 50 mg PO BID 03/31/24 topiramate 100 mg tablet (Topamax) 100 mg PO BID 03/31/24 trazodone 50 mg tablet 50 mg PO QHS PRN sleep 03/31/24 topiramate 100 mg tablet (Topamax) 100 mg PO BID 30 days #60 tabs 05/05/24 Plan Details Progress/Aftercare Plan Details:: Sierra has responded well to treatment as evidenced by Sierra consistently attending IOP sessions and their reduction of DSM- 5 scores since admission. Sierra was always attentive and receptive to learning during group and individual sessions. Sierra actively applied coping skills outside of IOP and reports overall their mood is improved and they are functioning better than they were several months ago. Sierra?s overall symptom reduction is 64% since admission with anger decreasing by 100%, depression decreasing by 88%, SI decreasing by 100%, and anxiety decreasing by 50%. Sierra has increased self- compassion and faced many hard things. Most importantly, Sierra has become more vulnerable, assertive, and confident in their abilities. Strategies for Success:: 1. Opposite action! Continue to break that cycle of a nxiety, guilt, and depression by not letting emotions be the only drivers of your bus. 2. Remember that thoughts are thoughts NOT facts! You have power in if you give thoughts the time of day or not. 3. self-care! You deserve to take time for you and you also deserve to face the not so fun self-care like sticking with routines and advocating for yourself 4. Self-compassion! You are human and you will make a mistake?BUT that doesn?t mean you are a failure or not good enough. Remember there are no bad parts of you! 5. Continue to practice acceptance and remember acceptance means loving this version of you 6. Practice positive self-talk and keep track of your wins. 7. Remember progress isn?t linear! You may have a setback or bump in the road, but that doesn?t mean you?ve lost all progress. 8. self-reflection and self-awareness. 9. Be understanding with yourself and try to see the whole picture, not just the snapshot. 10. Live in the sierra!! Appointments Appointments/Referrals to Other Services:: 1. Follow up with [facility] for medication management. 2. IOP aftercare group starting 06/03/24 from 2-3:30pm 3. Resources given for counseling.
--- NOTE | 2024-05-25 10:37 | BH.DS_ITS ---
Discharge Summary Demographics Date of Admission:: 04/13/24 Discharge Date: 05/25/24 Presenting Problems at Admission:: Pt is a 28 non-binary adult who was referred to [facility] tx due to two recent psychiatric admissions for suicide attempt by excessive alcohol consumption. Pt's most recent hospitalization was at [facility] and pt reports they were life flighted and treated medically first. Stressors at admission included finances, loss of job, chronic health issues, relationship stress, and low distress tolerance contributed to pt's SI. At admission to [facility] pt endorsed a depressed mood with hopelessness, worthlessness, anhedonia, lack of energy, lack of motivation, negative thoughts of self, and rumination. Pt's symptoms were impacting their ability to work, function at home and their relationships. Discharge Diagnoses:: Major depressive disorder, recurrent, severe without psychosis F 33.2; PTSD; Borderline personality disorder; Nonepileptic seizures, cannot rule out epileptic seizures; History of bulimia with purging by laxative and vomiting Reason for Discharge:: Pt has accomplished their treatment goals AEB pt's significant symptom reduction and self-report of improved functioning and mood. Pt no longer meets criteria for [facility] level of care and pt will transition to outpatient counseling and [facility] aftercare group. Treatment Progress During Treatment & Response: Pt has responded well to treatment as evidenced by Pt consistently attending IOP sessions and their reduction of DSM-5 scores since admission. Pt was always attentive and receptive to learning during group and individual sessions. Pt actively applied coping skills outside of [facility] and reports overall their mood is improved and they are functioning better than they were several months ago. Pt?s overall symptom reduction is 64% since admission with anger decreasing by 100%, depression decreasing by 88%, SI decreasing by 100%, and anxiety decreasing by 50%. Pt has increased self- compassion and faced many hard things. Most importantly, Pt has become more vulnerable, assertive, and confident in their abilities. Issues Still to be Addressed:: Pt can benefit from continuing to work on their self-compassion, dialectical thinking, boundary setting, and maintenance of healthy coping skills. Pt also is looking for a part-time job which will help pt get into a new routine. Discharge Recommendations/Instructions:: Pt will follow up with [facility] for medication management. Pt was not sure when their next appointment was, but pt will begin [facility] aftercare group on 06/03/24 and therapist will check in with pt. Pt was given referrals for [facility], [facility], and [facility] for individual therapy. Discharge Handout
--- NOTE | 2024-05-25 11:12 | BH.MDN_ITS ---
Multi-Disciplinary Note Note 30-min Individual: Time Started:: 10:45 Date: 05/25/24 Time Stopped:: 11:15
--- NOTE | 2024-05-25 11:12 | BH.MDN ---
Multi-Disciplinary Note Note 30-min Individual: Time Started:: 10:45 Date: 05/25/24 Purpose of session/treatment goals addressed:: To address current stressors and discuss strategies to help cope with these stressors. Another goal was to discuss discharge and aftercare. Eye Contact:: Good Motor Activity:: Appropriate Appearance:: Neat Speech:: Appropriate Mood:: Euthymic Affect:: Full Thoughts:: Linear, Logical and No evidence of hallucinations/delusions noted Staff Interventions:: discharge planning, strengths perspective and reviewed DSM-5 Client Response:: Pt responded well to session, open to meeting with therapist. Pt reports feeling much different from when pt started IOP. Pt reflected on progress sharing when they first started pt was suicidal, hopeless, and had recently attempted suicide. Pt was also drinking to numb, isolating, and not engaging in hobbies or interests. Now pt is sober, pt has a job interview this week, they no longer isolate, and they use healthy coping skills daily. Pt feels their perspective has changed the most since starting IOP and pt is able to challenge their black and white thinking much quicker now. Pt also has made the connection that when their mental health improves so does their physical health and functioning. Pt has been consistent with applying coping skills, setting boundaries with themselves and others, and communicating their needs. Pt has also changed their routine which has helped pt get back into hobbies and practice more self-care. Pt did well during IOP and pt acknowledged that they put forth as much effort as possible while in the program which pt feels paid off. Risks/Concerns:: Pt denies any suicidal ideations, plan, or intent. Pt denies any thoughts of . Progress Toward Goals/Plan:: Pt will discharge from IOP tx today as pt has accomplished their goals AEB pt?s overall symptom reduction is 64% since admission with anger decreasing by 100%, depression decreasing by 88%, SI decreasing by 100%, and anxiety decreasing by 50%. Pt does not have a session scheduled with an outpatient therapist yet as pt's insurance has been difficult for pt to find a provider. Pt was given options for four places and pt plans to call today. Pt will start IOP aftercare next week on 06/03/24. Time Stopped:: 11:15
--- NOTE | 2024-05-25 11:15 | BH.SGPN.GN ---
Behaviors/Verbalizations/Mental Status: [] Pt alert and oriented, casually dressed and groomed. Eye contact good. Motor activity appropriate. Speech within normal limits. Affect congruent, mood content. Thoughts linear, logical, no signs of hallucinations or delusions. Client Response/Progress/Benefit: [] Pt was an attentive and active participant in group discussions and experiential activity, doing well to regulate their emotions throughout the activity and work with peers. Attentive during psychoeducation on the 4 A's (Avoid, adapt, alter, accept) of coping with stress. Shared that they would benefit most from avoiding unnecessary conversations with supports to prevent unnecessary conflict and additional stress. Was able to identify the connection between the experiential activity and utilization of stress management skills. Benefited from increased awareness of stress management strategies. Pt will d/c from IOP tx and continue with individual outpatient therapy to prevent decompensation and maintain mood stability. Narrative Note: []
== END 2024-05-25 12:38 | disposition home or self-care (01) ==
LOC: BHIOP 07:08
PROVIDERS: PCP Internal Medicine; Referring Provider Psychiatry & Neurology Psychiatry; Visit Provider Psychiatry & Neurology Psychiatry
DX: F33.2 Major depressive disorder, recurrent severe without psychotic features (principal); F43.10 Post-traumatic stress disorder, unspecified; F60.3 Borderline personality disorder; G40.909 Epilepsy, unspecified, not intractable, without status epilepticus; F50.2 Bulimia nervosa; Z79.899 Other long term (current) drug therapy
CPT/HCPCS: S9480; 90832; 90834; 90853

== ENCOUNTER 2024-06-03 14:52 | Outpatient (RCR) | payer OTHER, SELFPAY ==
--- NOTE | 2024-06-03 16:53 | BH.MTP ---
Master Treatment Plan Patient Information Program Physician:: Dr. Shawanda Gee Primary Therapist:: Ila HERNANDEZ Psychiatric Diagnoses Psychiatric Diagnoses:: Major depressive disorder, recurrent, severe without psychosis F 33.2; PTSD; Borderline personality disorder; Nonepileptic seizures, cannot rule out epileptic seizures; History of bulimia with purging by laxative and vomiting Diagnosis Code(s):: F 33.2 Estimated LOS Estimated LOS (in weeks):: 8 Problem/Goal #1 Problem/Goal #1 Stated Goal:: client will maintain or see a reduction in symptoms AEB client score on the DSM 5 cross-cutting measure and improve client's daily functioning. Objectives Objective #1: Stated Objective: Client will continue to consistently apply healthy coping skills to maintain progress made in IOP tx. Interventions: Through group therapy, client will review warning signs and triggers as well as healthy coping skills learned in IOP tx to successfully maintain gains while transitioning into outpatient therapy. Discharge Criteria: Client will have accomplished this goal when client's score on the DSM-5 cross-cutting measure has maintained or reduced over a 8 week period. Target Date: 07/29/24 Review Date: 07/01/24 Status: open Objective #2: Stated Objective: Client will learn and utilize 2-3 maintenance strategies to prevent decompensation from original IOP DSM-5 scores. Interventions: Through group therapy, client will be provided with education on healthy maintenance behaviors, relapse prevention techniques, and healthy coping strategies. Discharge Criteria: Client will have accomplished this goal when can report using at least 2 maintenance skills to prevent decompensation compared to original IOP DSM-5 scores Target Date: 07/29/24 Review Date: 07/01/24 Status: open
== END 2024-06-07 23:59 ==
LOC: BHOG 14:52
PROVIDERS: PCP Internal Medicine; Referring Provider Psychiatry & Neurology Psychiatry; Visit Provider Psychiatry & Neurology Psychiatry
DX: F33.2 Major depressive disorder, recurrent severe without psychotic features (principal); F43.10 Post-traumatic stress disorder, unspecified; F60.3 Borderline personality disorder; G40.89 Other seizures
CPT/HCPCS: 90853

== ENCOUNTER 2024-06-08 08:07 | Outpatient (RCR) | payer OTHER, SELFPAY ==
--- NOTE | 2024-06-17 14:00 | BH.SGPN.GN ---
Behaviors/Verbalizations/Mental Status: []Client alert and oriented, casually dressed and groomed. Eye contact good. Motor activity appropriate. Speech within normal limits. Affect congruent, mood euthymic and stressed. Thoughts linear, logical, no signs of hallucinations or delusions. Client Response/Progress/Benefit: []Pt responded well to session AEB sharing and listening attentively to others. Pt followed up with all mental health appointments this week and pt is taking medications regularly. Pt stated self-care, thought challenging, and mindfulness skills as pt?s primary coping skills this week. Pt is stressed about their job after recently noticing some red flags with their employer and having to do things that pt was not prepared for in the job description. Pt participated in group discussion defining vulnerability, how and why we avoid it, and the benefits. Pt was an active participant and provided personal examples of being vulnerable and the positive things that came with this. Pt stated that he would like to practice vulnerability this week by getting a new primary care doctor instead of continuing to avoid. Will continue aftercare treatment to reinforce healthy coping skills and promote gains. Narrative Note: []
--- NOTE | 2024-07-01 15:12 | BH.TPR ---
Treatment Plan Review Demographics Date of Admission:: 06/03/24 Date of Treatment Plan Review:: 07/01/24 Admitting Diagnoses:: Major depressive disorder, recurrent, severe without psychosis F 33.2; PTSD; Borderline personality disorder; Nonepileptic seizures, cannot rule out epileptic seizures; History of bulimia with purging by laxative and vomiting Current Diagnoses:: Major depressive disorder, recurrent, severe without psychosis F 33.2; PTSD; Borderline personality disorder; Nonepileptic seizures, cannot rule out epileptic seizures; History of bulimia with purging by laxative and vomiting Patient Status Patient's Response to Treatment:: Pt continues to respond well to treatment AEB pt's consistent attendance, ongoing attentiveness and engagement in group discussions, and continued reporting use of skills outside treatment environment. Pt did not attend on the day of their treatment plan review, so pt did not complete the DSM-5. Status of Current Problems and Symptoms: Pt reported on 06/17/24 that they were struggling with managing work-related stress and pt has been noticing more chronic pain flare ups due to feeling more overwhelmed at work. 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 Pt also has ongoing financial stress. Progress Problem #1: Problem Name:: Pt will maintain or see a reduction in sx Status of Goals:: Obj 1 - not complete due to lack of date. Pt unable to complete the DSM-5 so pt's scores cannot be compared. However, pt has been reporting more anxiety recently due to work. Obj 2 - complete with ongoing work encouraged. Pt had been reporting using opposite action, self-compassion, communicating with partners, and dialectical thinking. Team Recommendations:: Recommended client continue IOP aftercare group in addition to attending regular outpatient counseling in order to maintain gains. Pt also recommended to continue working on self-compassion, practice self-care, and advocating for needs at work.
== END 2024-07-08 23:59 ==
LOC: BHOG 08:07
PROVIDERS: PCP Internal Medicine; Referring Provider Psychiatry & Neurology Psychiatry; Visit Provider Psychiatry & Neurology Psychiatry
DX: F33.2 Major depressive disorder, recurrent severe without psychotic features (principal); F43.10 Post-traumatic stress disorder, unspecified; F60.3 Borderline personality disorder; G40.89 Other seizures
CPT/HCPCS: 90853

== ENCOUNTER → 2024-07-28 | Outpatient (CLI) | payer OTHER, SELFPAY ==
[2024-07-28 10:23] LABS: Absolute Lymphocyte Count 2.39 X10^3/uL (0.83-4.51); Absolute Neutrophil Count 3.7 X10^3/uL (2.0-7.7); Basophil# 0.06 X10^3/uL; Basophil% 0.9 % (0-1); Eosinophil# 0.18 X10^3/uL; Eosinophils% 2.6 % (0-5); Hematocrit 41.8 % (37-47); Hemoglobin 13.3 g/dL (12.0-15.0); Lymphocyte # 2.39 X10^3/ul (0.83-4.51); Lymphocyte % 34.9 % (19-41); Mean Corp Hgb Conc 31.8 g/dL (32-36); Mean Corpuscular Volume 91.1 fL (81-99); Mean Platelet Vol. 8.9 fl (6.2-12.0); Monocyte# 0.53 X10^3/uL; Monocyte% 7.7 % (0-10); NRBC Flagged by Analyzer 0 % (0-5); Neutrophil # 3.65 X10^3/uL (2.7-7.7); Neutrophil % 53.3 % (47-70); Platelet Count 270 K/mm3 (150-450); RBC Distribution Width CV 13.1 % (11.6-14.6); RBC Distribution Width SD 42.7 fl (35.1-43.9); Red Blood Count 4.59 M/mm3 (4.2-5.4); White Blood Count 6.9 K/mm3 (4.4-11.0)
[2024-07-28 10:46] LABS: Vitamin D,25 Hydroxy 27.1 ng/mL
[2024-07-28 10:55] LABS: AST(SGOT) 94 U/L (15-37); Alanine Aminotransfer ALT/SGPT 114 U/L (13-56); Albumin, Serum 3.6 g/dL (3.2-5.0); Alkaline Phosphatase 69 U/L (45-117); Anion Gap 8 (5-15); BUN 13 mg/dL (7-18); BUN/Creat Ratio 16.3 RATIO (10-20); Calcium,Total 8.9 mg/dL (8.5-10.1); Chloride 115 mmol/L (98-107); EST Glomerular Filtration Rate 91 mL/min (>60); Est Glom Filt Rate - Afr Amer 110 mL/min (>60); Ferritin 55 ng/mL (8-252); Globulin 3.6 g/dL (2.2-4.2); Glucose 106 mg/dL (74-106); Iron 91 ug/dL (50-170); Iron Binding Capacity,Total 339 ug/dL (250-450); PERCENT IRON SATURATION 26.8 % (15.0-55.0); Potassium 3.9 mmol/L (3.5-5.1); Protein, Total 7.2 g/dL (6.4-8.2); Sodium Level 138 mmol/L (136-145); T4 Free Direct 0.97 ng/dL (0.76-1.46)
[2024-07-29 12:10] LABS: Lyme Scn Total Ab w/Rflx Negative (Negative)
[2024-07-29 13:08] LABS: ANTINUCLEAR ANTIBODIES DIRECT Negative (Negative)
== END | disposition home or self-care (01) ==
LOC: MFPLAB 08:39
PROVIDERS: PCP Family Medicine; Visit Provider Family Medicine
DX: G89.4 Chronic pain syndrome (principal); N92.0 Excessive and frequent menstruation with regular cycle
CPT/HCPCS: 36415; 80053; 82306; 82728; 83540; 83550; 84439; 84443; 85025; 86038; 86618